=== PATIENT | female | born 1960 | race Caucasian/White ===

== ENCOUNTER 2018-03-17 08:12 | Outpatient (CLI) | payer OTHER | END 2018-03-17 08:13 | disposition home or self-care (01) | LOC: BICMAMMO 08:12 | PROVIDERS: ATTEND Obstetrics & Gynecology | DX: Z12.31 Encounter for screening mammogram for malignant neoplasm of breast (principal) | CPT/HCPCS: 77063; 77067 ==

== ENCOUNTER 2019-03-08 07:03 | Inpatient (IN) | payer OTHER ==
[2019-03-08] MEDS ORDERED: Fentanyl 100 MCG/2 ML VIAL ONE ×2 (07:15→10:46)
[2019-03-08] MEDS ORDERED: Ondansetron PF 4 MG/2 ML Vial ONE (07:20)
--- NOTE | 2019-03-08 07:45 | RAD ---
Radiograph left leg tibia-fibula 2 views: 03/08/2019 7:05 AM HISTORY: 58-year-old female with osteoporosis presents with traumatic pain after fall. COMPARISON: None FINDINGS: Comminuted fracture of tibia beginning at junction between distal and middle thirds of the diaphysis, extending to the tibial plafond and medial malleolus, with displacement. The fracture component at the junction between the proximal and middle thirds of the diaphysis includes spiral component, with 1/5 shaft width anterior displacement but no significant transverse displacement, of the main distal fragment. The more distal comminuted fracture fragments are significantly more displaced and a ngulated. There is spiral fracture of distal fibular metadiaphysis significant displacement. No fracture of the proximal tibia and fibula. Lateral subluxation of the talus relative to the tibial pl afond with varus angulation. Varus angulations of the medial malleolus and lateral malleolus fractures. IMPRESSION: Acute, traumatic, comminuted, displaced fractures of the distal tibia and distal fibula.
[2019-03-08] MEDS ORDERED: Morphine 4 MG/ML VIAL ONE ×2 (07:50→09:13)
--- NOTE | 2019-03-08 07:59 | RAD ---
Radiograph left ankle 3 views: DATE: 03/08/2019 Time: 7:03 AM HISTORY: 58-year-old female with osteoporosis presents with traumatic pain after fall. COMPARISON: None FINDINGS: Comminuted fracture of tibia beginning at junction between distal and middle thirds of the diaphysis, extending to the tibial plafond and medial malleolus, with displacement. The fracture component at the junction between the proximal and middle thirds of the diaphysis includes spiral component, with 1/5 shaft width anterior displacement but no significant transverse displacement, of the main distal fragment. The more distal comminuted fracture fragments are significantly more displaced and a ngulated. There is spiral fracture of distal fibular metadiaphysis significant displacement. No fracture of the proximal tibia and fibula. Lateral subluxation of the talus relative to the tibial pl afond with varus angulation. Varus angulations of the medial malleolus and lateral malleolus fractures. IMPRESSION: Acute, traumatic, comminuted, displaced fractures of the distal tibia and distal fibula, with subluxa tion of the tibiotalar joint.
[2019-03-08 08:07] LABS: #Basophils 0.1 thou/uL (0.0-0.2); #Eosinphils 0.1 thou/uL (0.0-0.7); #Lymphocytes 1.4 thou/uL (1.20-3.40); #Monocytes 0.3 thou/uL (0.11-0.59); #Neutrophils 6.8 thou/uL (1.40-6.50); %Basophils 0.6 % (0.0-1.0); %Eosinophils 1.3 % (0.0-10.0); %Lymphocytes 15.6 % (21.0-51.0); %Monocytes 3.7 % (0.0-10.0); %Neutrophils 78.7 % (42.0-75.0); Hemoglobin 13.9 g/dL (12.0-16.0); Mean Corpuscular HGB CONC 31.3 g/dL (32.0-36.0); Mean Corpuscular Hemoglobin 30.6 pg (27.0-31.0); Mean Corpuscular Volume 97.9 fL (78.0-98.0); Mean Platelet Volume 9.2 fL (7.4-10.4); Platelet Count 163 thou/uL (130-400); RBC Distribution Width 11.3 % (11.5-14.5); Red Blood Cell (RBC) Count 4.55 mill/uL (4.20-5.40); White Blood Cell (WBC) Count 8.6 thou/uL (4.8-10.8)
--- NOTE | 2019-03-08 08:08 | RAD ---
Radiograph left ankle 2 views: DATE: 03/08/2019 Time: 7:37 AM HISTORY: 58-year-old female with acute, traumatic distal tibial and distal fibular fractures, status post redu ction. COMPARISON: 03/08/2019 7:03 AM FINDINGS: The leg and ankle are now in a splint. The subluxation of the tibiotalar joint has been reduced. The angulations of the medial and lateral malleoli fractures have improved. The angulation of the distal tibial diaphyseal fracture component has slightly worsened, now with new anterior slight angul ation of the fracture apex and new quarter shaft width lateral displacement of distal fragment. There is also new anterior angulation of the fracture apex of the distal fibular metadiaphyseal fract ure, but the valgus alveolar aeration has almost completely resolved. IMPRESSION: Overall interval improvement in alignment of the acute, traumatic, displaced, comminuted fracture-sub luxation of distal tibia and distal fibula.
[2019-03-08 08:12] LABS: INR-International Normal Ratio 1.1; PTT 26.7 SEC (22.9-36.1); Prothrombin Time 14.1 SEC (12.0-14.7)
--- NOTE | 2019-03-08 08:13 | RAD ---
LEFT FOOT 2 VIEWS: Date: 03/08/19 HISTORY: Trauma. COMPARISON: Tibia and fibula radiograph same date. FINDINGS: Mild improved alignment distal fibular and tibial fractures with interarticular components. Moderate size plantar calcaneal spur. Evaluation of the foot is limited. IMPRESSION: Mild improved alignment distal fibula and tibial fractures. POS: CET
--- NOTE | 2019-03-08 08:15 | RAD ---
CHEST 1 VIEW: Date: 03/08/19 HISTORY: Preop. COMPARISON: None. FINDINGS: Heart size upper limits of normal. No pneumothorax. Mild pulmonary venous congestion. 3 lead AICD/pacer is in place. No acute osseous abnormality. IMPRESSION: Mild cardiomegaly and pulmonary venous congestion. POS: CET
[2019-03-08] MEDS ORDERED: CEFAZOLIN 2 GM in Sodium Chloride 0.9% 100 ML IVPB SCH ×2 (08:30→14:00)
[2019-03-08 08:31] LABS: ALT (SGPT) 11 U/L (8-55); AST (SGOT) 17 U/L (5-34); Albumin 3.6 g/dL (3.5-5.0); Alkaline Phosphatase 63 U/L (40-150); Anion Gap 11 mmol/L (10-20); BUN (Urea Nitrogen) 10 mg/dL (9.8-20.1); Bilirubin, Total 0.5 mg/dL (0.2-1.2); Calc. Creatinine Clearance 0 mL/min (70-130); Calcium 9.2 mg/dL (7.8-10.44); Carbon Dioxide 21 mmol/L (22-29); Chloride 109 mmol/L (98-107); Estimated GFR-MDRD 78; Globulin 2.7 g/dL (2.4-3.5); Glucose 101 mg/dL (70-105); Potassium 3.9 mmol/L (3.5-5.1); Protein, Total 6.3 g/dL (6.0-8.3); Sodium 137 mmol/L (136-145)
--- NOTE | 2019-03-08 08:40 | CON ---
DATE OF CONSULTATION: This is Ralf Zee PA-C dictating a report for Eitan Bucio MD. We were asked by Trauma and Emergency Room to see the patient. The patient got up early this morning around 3:00, had a Coke Zero and a half a snickerdoodle when she arrived at work at [employer]. 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 This is not open. Initial x-rays done. Medications given by the ER. Ankle realigned and splinted, in good alignment now. The patient has no loss of sensation. She has good motor function to that left lower extremity. She denies any other injury. She did not hit her head. Her health, she states is fair. She has a bad heart and significant osteoporosis. ALLERGIES: NO KNOWN DRUG ALLERGIES. MEDICATIONS: Intravia and carvedilol. PAST SURGICAL HISTORY: Last surgery was defibrillator placement for weak heart. PAST MEDICAL HISTORY: Cardiac and significant osteoporosis. SOCIAL HISTORY: . is at bedside. 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 No alcohol products, but does smoke about a pack a day. No drugs products. REVIEW OF SYSTEMS: Cardiac and osteoporosis, otherwise rest of review of systems is negative. Her only real complaint is that left ankle pain currently. PHYSICAL EXAMINATION: GENERAL: Well-nourished, well-developed female, pleasant, currently in no acute distress. Speech clear. Answers question appropriately. Alert and oriented x3. is at bedside. HEENT: Normal exam. Face symmetric. Tongue midline. NECK: Supple. Range of motion full. Trachea midline. EXTREMITIES: Upper extremities; equal size, shape, symmetry, normal bulk and tone. Good motor function bilaterally. Pulses and sensations equal. Lower extremities; also equal size, shape, symmetry, normal bulk and tone, with the exception of the left lower extremity, which is currently splinted. She has good cap refill and movement, sensations are equal. DIAGNOSTIC DATA: X-rays show a substantial fibula fracture and a tibia fracture on the left. Post alignment films look great and leg is splinted. Labs are pending as is EKG and chest x-ray. PLAN: I spoke with the patient and . She will need to have an ORIF of that left ankle, tib-fib with plating on both bones. The procedure has been explained to both of them as has the risks and benefits, and they are both amenable to go forth with surgery and she has been n.p.o. since about 4:30 this morning. Her plan is to take her to OR around 11:30. We will get her consented, get the OR setup. Again, she has been splinted by the ER and the alignment looks fine. We are just waiting for Trauma to clear the patient with her cardiac history. Once it is done, we will get her up to the OR. Job ID: [id number]
[2019-03-08] MEDS ORDERED: Ondansetron PF 4 MG/2 ML Vial IVP PRN (09:10)
[2019-03-08] MEDS ORDERED: Dextrose 5% in Water 1,000 ML IV PRN (09:10)
[2019-03-08] MEDS ORDERED: Dextrose 50% Abboject 50 ML SYRINGE SLOW IVP PRN (09:10)
[2019-03-08] MEDS ORDERED: Promethazine HCl 25 MG/ML VIAL IM PRN ×2 (09:10→13:51)
[2019-03-08] MEDS ORDERED: hydrALAZINE 20 MG/ML VIAL SLOW IVP PRN (09:10)
[2019-03-08] MEDS ORDERED: D5 1/2 NS w/20 mEq KCL 1,000 ML ONE (09:12)
[2019-03-08] MEDS ORDERED: traMADol HCl 50 MG TAB PO PRN ×2 (09:20→16:49)
[2019-03-08] MEDS ORDERED: Cyclobenzaprine 10 MG TAB PO PRN (09:20)
[2019-03-08] MEDS ORDERED: Morphine 2 MG/ML SYRINGE SLOW IVP PRN (09:33)
[2019-03-08] MEDS ORDERED: Midazolam HCl 2 mg/2 ml Vial ONE (10:46)
[2019-03-08] MEDS ORDERED: Dexamethasone 4 mg/ml Vial ONE (11:15)
--- NOTE | 2019-03-08 11:28 | HP ---
TRAUMA SURGEON: Dr. Paul. CONSULTING PHYSICIAN: Dr. Pleitez of Cardiology. HISTORY OF PRESENT ILLNESS: The patient is a 58-year-old female, who presented to the emergency department via EMS after a mechanical fall from standing with some left lower extremity pain and deformity. En route, the patient did receive fentanyl and ketamine, which she reported caused her to have hallucinations. Upon arrival to the emergency department, it was noted that she had a left distal tib-fib fracture. Orthopedic Surgery was consulted, who recommended operative management. Trauma Surgery evaluated the patient and discovered that the patient does have an AICD for heart failure. She has previously seen Dr. Rushing and had an echo within the last year, but she does not know the results of her echo. REVIEW OF SYSTEMS: All additional 10-point review of systems negative except as indicated above. PAST MEDICAL HISTORY: Heart failure with AICD placement, and osteoarthritis. PAST SURGICAL HISTORY: Hysterectomy. SOCIAL HISTORY: The patient lives at home with her and works a part- time job. MEDICATIONS: 1. Entresto. 2. Carvedilol. ALLERGIES: NO KNOWN DRUG ALLERGIES. PHYSICAL EXAMINATION: PRIMARY SURVEY: Airway intact. Adequate breath sounds bilaterally. 2+ pulses in the bilateral radials, femorals, and DPs. GCS 15. Gross motor and sensation are intact. No lacerations bruising or external bleeding. SECONDARY SURVEY: HEAD: Normocephalic, atraumatic. No gross palpable skull deformity or tenderness. EYES: Pupils 3 to 2, equal, round, reactive to light bilaterally. ENT: No hemotympanum. No epistaxis. No septal hematoma. Midface stable to manipulation. No blood in the oropharynx. The dentition is intact. No anterior neck injury/crepitus/tenderness. C-SPINE: No step-offs or deformities. Nontender. C-collar not in place. CHEST: Nontender. No crepitus. No abrasions or ecchymosis. Equal chest movement. ABDOMEN: Soft, nontender, nondistended. PELVIS: Stable to palpation, nontender. No abrasions or ecchymosis. RECTAL: Deferred. GENITOURINARY: Deferred. EXTREMITIES: Left lower extremity with splint in place. No signs of other external trauma. 2+ pulses in the bilateral radials, femorals, and DPs. Gross motor and sensation are intact. BACK/SPINE: No step-offs, deformities, or tenderness to palpation of the thoracic or lumbar spine. No abrasions or ecchymosis noted. NEUROLOGIC: 5/5 strength in bilateral felt hat flanging operator and plantar, dorsiflexion on the right lower extremity. Wiggles left toes. Gross normal sensation x4 extremities. LABORATORY FINDINGS: White count 8.6, hemoglobin 13.9, hematocrit 44.5, and platelets 163. INR 1.1. Sodium 137, potassium 3.9, chloride 109, carbon dioxide 21, BUN 10, and creatinine is 0.76. DIAGNOSTIC FINDINGS: X-ray of the left ankle demonstrates acute traumatic comminuted displaced fracture of the distal tibia and distal fibula with subluxation of the tibiotalar joint. X-ray of the left tib-fib demonstrates acute traumatic comminuted displaced fracture of the distal tibia and fibula. X-ray of the left foot demonstrates mild improved alignment, distal fibular and tibial fracture. Chest x-ray demonstrates mild cardiomegaly and pulmonary venous congestion. ASSESSMENT: 1. Status post mechanical fall from standing. 2. Left distal tib-fib fracture with ankle dislocation. 3. History of heart failure with AICD placement and history of osteoarthritis. 4. Acute traumatic pain. PLAN: The patient will be admitted to the surgical floor under the trauma surgery team. She is planning to go to the OR today with Dr. Blanchard of Orthopedic Surgery. Dr. Rushing is her button tufter. We did try to speak with Dr. Rushing about the patient; however, Dr. Pleitez is on-call and has agreed to see and evaluate the patient for preop clearance for the OR. We have consulted him officially and will wait for his recommendations. In the meantime, she is okay to go to the floor. She is n.p.o. She has oral and IV pain medications both scheduled and as needed. Postoperatively, she will work with Physical and Occupational Therapy, and depending on her progress, she may be able to go home versus acute inpatient rehab. We will re-evaluate her daily. The patient was seen and evaluated by Dr. Paul and myself this morning. Job ID: [id number] [facility]
[2019-03-08] MEDS ORDERED: ceFAZolin Sodium (SDC) 2 GM/100 ML BAG ONE (11:29)
[2019-03-08] MEDS ORDERED: Acetaminophen 1,000 MG in Premix Bag 1 BAG IVPB SCH (12:00)
[2019-03-08] MEDS ORDERED: traMADol HCl 50 MG TAB PO SCH (12:00)
[2019-03-08] MEDS ORDERED: Ondansetron HCl/PF 4 MG/2 ML Vial IVP PRN (13:51)
[2019-03-08] MEDS ORDERED: Promethazine HCl 25 MG/ML VIAL SLOW IVP PRN (13:51)
--- NOTE | 2019-03-08 14:22 | OP ---
DATE OF PROCEDURE: 03/08/2019 OPERATIONS: 1. Open reduction and internal fixation of left distal tibial shaft fracture. 2. Open reduction and internal fixation of left trimalleolar ankle fracture. PREOPERATIVE DIAGNOSES: 1. Left tibial shaft fracture. 2. Left trimalleolar ankle fracture. POSTOPERATIVE DIAGNOSES: 1. Left tibial shaft fracture. 2. Left trimalleolar ankle fracture. COMPLICATIONS: None. ESTIMATED BLOOD LOSS: Minimal. PRECISION THREAD GRINDER OPERATOR: Ralf Zee. IMPLANTS: Synthes distal tibia plate, size 12-hole, medial. Distal fibular locking plate and multiple locking and nonlocking small fragment screws were utilized. INDICATIONS: Ms. Saunders was identified in the preoperative holding area. Her correct extremity was marked. She was carried to the operating room. She was positioned supine. General anesthesia was induced. A multidisciplinary time-out was performed. The left lower extremity was prepped and draped in the sterile fashion. We began the procedure with a lateral incision over the distal fibula. We dissected down through the subcutaneous tissues to the distal fibula itself. We exposed the fracture. There was an oblique fracture. We pulled traction on this and cleared the soft tissues from the fracture site. We irrigated to remove hematoma. We then reduced the fracture with a reduction clamp. We placed a Synthes lateral distal fibular locking plate. Multiple screws were placed distally and proximally. This rigidly fixed the distal fibular fracture and held our length. We took x-ray images confirming this. At this point, we moved to the medial side. We made a small incision over the medial malleolus. We made a small drill hole and then inserted a clamp. We irrigated the medial malleolar fracture site and joint. We then reduced the fracture back into its anatomic position. We held this with a reduction clamp. We then placed a single 3.5-mm screw across the medial malleolar fracture, rigidly fixing this. Next, at this point, we used an intraoperative x-ray to reduce the tibial shaft fracture. We applied a percutaneous clamp on the fracture site. This stabilized fracture. We passed a K-wire across the fracture, holding it as well. Next, we slid a 12-hole Synthes plate across the medial aspect of the tibia up across the mid tibial shaft fracture. We checked intraoperative position. We then placed a distal locking screw followed by proximal nonlocking screw. This reduced the plate to the bone and held our fracture position. We then placed multiple locking screws distally and proximally, finishing our construct. We took final x-ray images. We then thoroughly irrigated with copious lavage. All wounds were irrigated. At this point, we proceeded with wound closure in layers; 0 Vicryl suture, 2-0 Vicryl suture, nylon, and jeanna were utilized. The patient was placed in a well-padded splint at this point. She was then taken to the recovery room in good condition. Job ID: [id number]
[2019-03-08] MEDS: Ibuprofen 600 MG TAB PO SCH ×3 (14:42→22:13)
[2019-03-08] MEDS: Gabapentin 100 MG CAP PO SCH ×2 (15:11→20:05)
--- NOTE | 2019-03-08 15:23 | RAD ---
LEFT LEG TWO VIEWS: HISTORY: ORIF. COMPARISON: Ankle radiograph from the same day. FINDINGS: Satisfactory postoperative appearance of the medial and lateral plate and screw fixation with multipl e interfragmentary screws. IMPRESSION: Satisfactory postoperative appearance. POS: CET
[2019-03-08 15:54] VITALS: BMI 34.3
[2019-03-08] MEDS ORDERED: Acetaminophen/Codeine 30-300mg Tablet PO PRN (16:04)
[2019-03-08] MEDS: Acetaminophen 500 MG TAB PO SCH ×2 (17:04→23:31)
[2019-03-08] MEDS: traMADol HCl 50 MG TAB PO SCH ×2 (17:14→22:14)
[2019-03-08] MEDS ORDERED: Acetaminophen/Codeine 30-300mg Tablet PO SCH (18:00)
[2019-03-08] MEDS ORDERED: Acetaminophen 325 MG TAB PO SCH (18:00)
[2019-03-08] MEDS: Senokot S 8.6-50 MG TAB PO SCH (20:05)
[2019-03-08] MEDS: CEFAZOLIN 2 GM in Sodium Chloride 0.9% 100 ML IVPB SCH (20:06)
[2019-03-08] MEDS: Famotidine 20 MG TAB PO SCH (20:06)
[2019-03-08] MEDS: Carvedilol 6.25 MG TAB PO SCH (20:07)
[2019-03-09] MEDS: CEFAZOLIN 2 GM in Sodium Chloride 0.9% 100 ML IVPB SCH (04:07)
[2019-03-09 05:28] LABS: #Lymphocytes 1.1 thou/uL (1.20-3.40); #Monocytes 0.7 thou/uL (0.11-0.59); #Neutrophils 8.2 thou/uL (1.40-6.50); %Basophils 0.1 % (0.0-1.0); %Eosinophils 0.2 % (0.0-10.0); %Lymphocytes 10.7 % (21.0-51.0); %Monocytes 6.9 % (0.0-10.0); %Neutrophils 82.1 % (42.0-75.0); Hemoglobin 11.2 g/dL (12.0-16.0); Mean Corpuscular HGB CONC 32.4 g/dL (32.0-36.0); Mean Corpuscular Hemoglobin 31.8 pg (27.0-31.0); Mean Corpuscular Volume 98.2 fL (78.0-98.0); Mean Platelet Volume 9.5 fL (7.4-10.4); Platelet Count 137 thou/uL (130-400); RBC Distribution Width 11.1 % (11.5-14.5); Red Blood Cell (RBC) Count 3.53 mill/uL (4.20-5.40)
[2019-03-09 05:43] LABS: Anion Gap 10 mmol/L (10-20); BUN (Urea Nitrogen) 11 mg/dL (9.8-20.1); Calc. Creatinine Clearance 114 mL/min (70-130); Calcium 9.1 mg/dL (7.8-10.44); Carbon Dioxide 24 mmol/L (22-29); Chloride 105 mmol/L (98-107); Estimated GFR-MDRD 79; Glucose 128 mg/dL (70-105); Magnesium 1.7 mg/dL (1.6-2.6); Phosphorus 3.3 mg/dL (2.3-4.7); Potassium 3.7 mmol/L (3.5-5.1); Sodium 135 mmol/L (136-145)
[2019-03-09] MEDS: Acetaminophen 500 MG TAB PO SCH ×2 (06:20→11:14)
[2019-03-09] MEDS: traMADol HCl 50 MG TAB PO SCH ×2 (06:22→11:20)
[2019-03-09] MEDS: Ibuprofen 600 MG TAB PO SCH (06:22)
[2019-03-09 07:31] VITALS: TEMP 98.2
[2019-03-09] MEDS ORDERED: Magnesium 2 GM/50 ML 2 GM in Premix Bag 1 BAG IVPB SCH (07:45)
[2019-03-09] MEDS ORDERED: PHOS-NAK 1 PKT PACK PO SCH (07:45)
[2019-03-09] MEDS: Carvedilol 6.25 MG TAB PO SCH (08:17)
[2019-03-09] MEDS: Gabapentin 100 MG CAP PO SCH (08:32)
[2019-03-09] MEDS: Famotidine 20 MG TAB PO SCH (08:33)
[2019-03-09] MEDS: Senokot S 8.6-50 MG TAB PO SCH (08:33)
[2019-03-09] MEDS ORDERED: Polyethylene Glycol 3350 17 GM Packet PO SCH (09:00)
[2019-03-09] MEDS ORDERED: Enoxaparin Sodium 40 MG/0.4 ML SYRINGE SC SCH (09:00)
[2019-03-09 09:58] VITALS: BP 93/52
--- NOTE | 2019-03-09 10:14 | PRG ---
DATE OF SERVICE: 03/09/2019 SUBJECTIVE: Ms. Saunders underwent surgery repair of her fractured lower extremity yesterday. The patient is breathing fine. No chest pain or pressure. She tolerated the surgery well. The patient had a left tibial shaft fracture and left trimalleolar ankle fracture. OBJECTIVE: GENERAL: The patient is doing well now. VITAL SIGNS: Blood pressure 100/60 and pulse 60. LUNGS: Clear. Expiratory wheezing. CARDIAC: Normal S1 and normal S2. ABDOMEN: Soft and nontender. ASSESSMENT: 1. History of cardiomyopathy. Chest x-ray did not show evidence of heart failure. 2. Status post ankle fracture repair. PLAN: 1. She is to follow up with Dr. Rushing as an outpatient. Most recent ejection fraction is 45%. 2. I strongly encouraged to quit smoking. She says not unusual to wheeze. I stressed the importance of not smoking. Job ID: [id number]
--- NOTE | 2019-03-10 09:35 | DIS ---
DATE OF ADMISSION: 03/08/2019 DATE OF DISCHARGE: 03/09/2019 ADMISSION DIAGNOSES: 1. Status post fall. 2. Left trimalleolar ankle fracture, postop open reduction and internal fixation of left trimalleolar ankle fracture, day #1. 3. History of cardiomyopathy. DISCHARGE DIAGNOSES: 1. Status post fall. 2. Left ankle fracture, postop open reduction and internal fixation of left ankle fracture. 3. History of cardiomyopathy stable HOSPITAL COURSE: This is a 58-year-old female patient, who comes in for evaluation of left ankle pain after a fall. The patient was diagnosed with left ankle fracture and underwent surgery on the same day, ORIF. Her heart disease is stable.Minilab Operator is ok for her to go home and follow up with Dr Rushing. Pain is well controlled, tolerated regular diet. The patient is able to mobilize well and tolerate with regular diet. DISCHARGE DISPOSITION: Home. DISCHARGE CONDITION: Satisfactory. PHYSICAL EXAMINATION: GENERAL: The patient is alert, oriented x3. VITAL SIGNS: Temperature 98, respiratory rate 14, heart rate 61, O2 saturation 91% on room air, blood pressure 93/52. LUNGS: Clear bilaterally. CARDIAC: Regular rate and rhythm. ABDOMEN: Soft, nondistended. No rebound. EXTREMITIES: Neurovascularly intact x4. DISCHARGE INSTRUCTIONS: The patient is to follow up with Dr. Rushing in 2 weeks. The patient is to continue to work with outpatient PT, OT. The patient is to take pain medication as directed. The patient is instructed to stop smoking. DISCHARGE MEDICATIONS: 1. Aspirin b.i.d for DVT prophylaxis. 2. [place] p.r.n. for breakthrough pain. Job ID: [id number] [facility]
== END 2019-03-09 11:34 | disposition home or self-care (01) | DRG 493 ==
LOC: ERS 07:03 → SDC 10:09 → SURG A 14:37
PROVIDERS: ADMIT Specialist; ATTEND Specialist
PROC: 0QSH04Z Reposition Left Tibia with Internal Fixation Device, Open Approach (ICD-10-PCS; principal; 2019-03-08)
DX: S82.852A Displaced trimalleolar fracture of left lower leg, initial encounter for closed fracture (principal); I42.9 Cardiomyopathy, unspecified; S93.05XA Dislocation of left ankle joint, initial encounter; S82.832A Other fracture of upper and lower end of left fibula, initial encounter for closed fracture; W01.10XA Fall on same level from slipping, tripping and stumbling with subsequent striking against unspecified object, initial encounter; M81.0 Age-related osteoporosis without current pathological fracture; I50.9 Heart failure, unspecified; F17.210 Nicotine dependence, cigarettes, uncomplicated; M19.90 Unspecified osteoarthritis, unspecified site; Z95.810 Presence of automatic (implantable) cardiac defibrillator; Y92.511 Restaurant or cafe as the place of occurrence of the external cause; Z90.710 Acquired absence of both cervix and uterus; Z88.8 Allergy status to other drugs, medicaments and biological substances
CPT/HCPCS: 27840; 36415; 71045; 76000; 80048; 80053; 83735; 84100; 85025; 85610; 85730; 93005; 96361; 96374; 96375; 96376; C1713; G0390; J0131; J0690; J1100; J1650; J2250; J2270; J2405; J3010; J3475; J3490

== ENCOUNTER 2019-07-11 17:31 | Inpatient (IN) | payer OTHER ==
--- NOTE | 2019-07-11 18:29 | RAD ---
XR Femur Lt 2 View STANDARD History: Trauma. Fall Comparison: Pelvis radiograph 2016 Findings: Left proximal femur is intact poorly evaluated distal femur although there does appear to b e a lateral femoral condylar fracture of the superior articular surface. The crosstable lateral view has a linear lucency through the femoral neck although not definitively a fracture of there is n o cortical step-off. Impression: 1. Severely limited examination. 2. Possible left lateral femoral condylar fracture supra-articular surface. 3. Linear lucency of the left femoral neck only seen on the crosstable lateral view which is limited due to projection and overlying soft tissue. If acutely unable to bear weight, CT or MRI is recommended.
--- NOTE | 2019-07-11 18:31 | RAD ---
XR Knee Lt 2 View History: Fall. Trauma Comparison: None. Findings: Possible fracture left lateral femoral condyle the limited due to nontreated views and paul re osteopenia as well as photon starvation. The lateral tibial plateau is not well interrogated. Impression: Severely limited exam. Possible lateral femoral condyle supra-articular fracture. Lateral tibial plateau is severely osteopenic and evaluation for fracture cannot be performed. CT recommended if clinically warranted.
--- NOTE | 2019-07-11 19:10 | RAD ---
XR Chest 1 View Portable History: Preop evaluation Comparison: Radiograph February 2019 Findings: AICD/pacer is similar. Lungs are clear. No pneumothorax. No effusion. Impression: No acute intrathoracic abnormality.
[2019-07-11 19:42] LABS: #Basophils 0.1 thou/uL (0.0-0.2); #Eosinphils 0.1 thou/uL (0.0-0.7); #Lymphocytes 1.3 thou/uL (1.20-3.40); #Monocytes 0.7 thou/uL (0.11-0.59); #Neutrophils 9.3 thou/uL (1.40-6.50); %Basophils 0.6 % (0.0-1.0); %Eosinophils 0.9 % (0.0-10.0); %Lymphocytes 11.4 % (21.0-51.0); Hemoglobin 14.4 g/dL (12.0-16.0); Mean Corpuscular HGB CONC 33.6 g/dL (32.0-36.0); Mean Corpuscular Hemoglobin 32.2 pg (27.0-31.0); Mean Corpuscular Volume 95.9 fL (78.0-98.0); Mean Platelet Volume 8.9 fL (7.4-10.4); Platelet Count 194 thou/uL (130-400); RBC Distribution Width 11.4 % (11.5-14.5); Red Blood Cell (RBC) Count 4.46 mill/uL (4.20-5.40); White Blood Cell (WBC) Count 11.5 thou/uL (4.8-10.8)
[2019-07-11] MEDS ORDERED: Ondansetron PF 4 MG/2 ML Vial ONE (19:52)
[2019-07-11] MEDS ORDERED: Ketorolac Tromethamine 30 MG/ML VIAL ONE (19:52)
[2019-07-11 20:01] LABS: Anion Gap 11 mmol/L (10-20); BUN (Urea Nitrogen) 12 mg/dL (9.8-20.1); Calc. Creatinine Clearance 0 mL/min (70-130); Calcium 9.4 mg/dL (7.8-10.44); Carbon Dioxide 26 mmol/L (23-31); Chloride 105 mmol/L (98-107); Estimated GFR-MDRD 64; Glucose 103 mg/dL (80-115); Magnesium 1.9 mg/dL (1.6-2.6); Phosphorus 3.1 mg/dL (2.3-4.7); Potassium 3.9 mmol/L (3.5-5.1); Sodium 138 mmol/L (136-145)
--- NOTE | 2019-07-11 20:14 | CT ---
CT Lower Ext Lt WO Con History: Pain Comparison: Radiograph same day Findings: Sagittally oriented fracture through the left femoral condyle extending to the intra-articu lar surface and posteriorly to the intercondylar notch. Bones are demineralized. The fracture extends above the joint line 3.5 cm. Tibial plateaus are intact. Fibular head and neck are intact. Large joint effusion. The muscles are atrophied. Large volume hemorrhage within the popliteal cyst. Impression: 1. Sagittal oblique fracture lateral femoral condyle extending to the anterior articular surface. Fra cture extends above the jointline 3.5 cm. 2. Muscle atrophy with high-grade osseous demineralization. 3. Incidental note is made of an old sagittally oriented right patellar fracture and posterior latera l right tibial plateau fracture.
--- NOTE | 2019-07-11 20:47 | HP ---
REQUESTING PHYSICIAN: Ronn Vasquez MD ADDITIONAL ATTENDING SURGEON: Stephan Priest MD CONSULTATIONS: Orthopedics, Eliseo Pérez MD HISTORY OF PRESENT ILLNESS: The patient is a 59-year-old woman, who was brought to the Emergency Department after she had a fall this morning around 11 a.m. She reports tripping and falling and landing on her left knee. The patient was wearing a walking boot from a previous injury in February. She is also ambulating with her cane. States that she hooked her boot on something and fell. She was able to get back to a recliner, where she remained for most of the day. When it was time for her to use the restroom, she was unable to ambulate. Her family called EMS. She was brought to the Emergency Department, underwent evaluation and examination and was noted to have a minimally displaced distal femur fracture, at which time, we were asked to evaluate the patient for admission and obtain Orthopedic consultation. The patient denied any loss of consciousness or syncopal episodes. ALLERGIES: FENTANYL. THE PATIENT STATES THAT MADE HER HALLUCINATE. CURRENT MEDICATIONS: 1. Carvedilol. 2. Entresto. PAST MEDICAL HISTORY: Coronary artery disease, heart failure with AICD placement, and osteoarthritis. PAST SURGICAL HISTORY: Hysterectomy and open reduction and internal fixation of left ankle fracture. SOCIAL HISTORY: The patient lives at home with her spouse. She smokes approximately one pack of cigarettes per day. Denies alcohol use or drug use. REVIEW OF SYSTEMS: A 10-point review of systems is negative as otherwise stated. PHYSICAL EXAMINATION: VITAL SIGNS: Blood pressure 121/70, heart rate 83, respirations 18, oxygen saturation 93% on room air, and temperature is 98.6. GENERAL: The patient is resting comfortably in bed. She has been medicated in the Emergency Department. She is awake, alert, and oriented x3. Beryl Coma Scale is 15. HEENT: Head is normocephalic and atraumatic. Eyes, extraocular motion intact. PERRLA bilaterally. Ears are atraumatic without discharge. Nose atraumatic without discharge. Oropharynx is clear. NECK: Nontender. Trachea is midline. No JVD. CHEST: Clear to auscultation with good inspiratory and expiratory effort. HEART: Regular rate and rhythm. ABDOMEN: Soft, flat, and nontender with active bowel sounds. PELVIS: Stable. EXTREMITIES: Neurovascularly intact x4. Left lower extremity has tenderness to palpation globally to the left knee area with a moderate effusion. BACK: By report is atraumatic and nontender. LABORATORY FINDINGS: White blood cell count 11.5, hemoglobin 14.4, hematocrit 42.8, and platelets 194. Sodium 138, potassium 3.9, chloride 105, CO2 of 26, BUN 12, creatinine 0.89, glucose 103, phosphorus 3.1, and magnesium 1.9. RADIOGRAPHIC REPORTS: AP chest x-ray shows no acute intrathoracic abnormality. Views of the left knee shows a possible lateral femoral condyle supracondylar fracture. The tibial plateau severely osteopenic and evaluation for fracture cannot be performed, CT is recommended. Views of the left femur again shows a possible left lateral femoral condyle supra-articular surface fracture. CT of the left knee shows a sagittal oblique fracture lateral femoral condyle extending to the anterior articular surface. ASSESSMENT: 1. Status post ground level fall with delayed presentation of approximately 8 hours. 2. Left distal femur fracture. 3. History of coronary artery disease, heart failure with automatic implantable cardioverter-defibrillator placement. PLAN: Plan will be to admit the patient to the surgical floor. She will be made n.p.o. after midnight. She will have pain control, pulmonary toilet, gastritis , and mechanical VTE prophylaxis. Postoperatively, she will begin physical and occupational therapy. We will discuss placement at that time. The evaluation and examination, laboratory and radiographic findings will be discussed with Dr. Priest after this dictation. Dr. Pérez has been notified of these findings, he informed me that Dr Bucio will preform the surgery. Job ID: [id number] [facility]
[2019-07-11] MEDS ORDERED: Morphine 4 MG/ML VIAL SLOW IVP PRN (22:21)
[2019-07-11] MEDS ORDERED: Ondansetron ODT 4 MG TAB PO PRN (22:21)
[2019-07-11] MEDS ORDERED: Dextrose 5% in Water 1,000 ML IV PRN (22:21)
[2019-07-11] MEDS ORDERED: Ondansetron PF 4 MG/2 ML Vial IVP PRN (22:21)
[2019-07-11] MEDS ORDERED: traMADol HCl 50 MG TAB PO PRN (22:21)
[2019-07-11] MEDS ORDERED: hydrALAZINE 20 MG/ML VIAL SLOW IVP PRN (22:21)
[2019-07-11] MEDS ORDERED: Dextrose 50% Abboject 50 ML SYRINGE SLOW IVP PRN (22:21)
[2019-07-11] MEDS ORDERED: Famotidine 20 MG TAB PO SCH (22:45)
[2019-07-11] MEDS: Cyclobenzaprine 10 MG TAB PO PRN (22:59)
[2019-07-11] MEDS: traMADol HCl 50 MG TAB PO PRN (23:01)
[2019-07-11 23:18] VITALS: BMI 35.8
[2019-07-11] MEDS ORDERED: Sodium Chloride 0.9% 1,000 ML IV SCH (23:55)
[2019-07-12] MEDS: Acetaminophen 1,000 MG in Premix Bag 1 BAG IVPB SCH ×3 (00:05→12:18)
[2019-07-12] MEDS: Morphine 2 MG/ML SYRINGE SLOW IVP PRN ×2 (00:06→09:15)
[2019-07-12 06:21] LABS: #Eosinphils 0.1 thou/uL (0.0-0.7); #Lymphocytes 1.9 thou/uL (1.20-3.40); #Neutrophils 6.5 thou/uL (1.40-6.50); %Basophils 0.3 % (0.0-1.0); %Eosinophils 1.3 % (0.0-10.0); %Lymphocytes 20.1 % (21.0-51.0); %Monocytes 10.6 % (0.0-10.0); %Neutrophils 67.7 % (42.0-75.0); Hemoglobin 12.5 g/dL (12.0-16.0); Mean Corpuscular HGB CONC 33.2 g/dL (32.0-36.0); Mean Corpuscular Hemoglobin 31.8 pg (27.0-31.0); Mean Corpuscular Volume 96.1 fL (78.0-98.0); Mean Platelet Volume 8.9 fL (7.4-10.4); Platelet Count 162 thou/uL (130-400); RBC Distribution Width 11.4 % (11.5-14.5); Red Blood Cell (RBC) Count 3.91 mill/uL (4.20-5.40); White Blood Cell (WBC) Count 9.6 thou/uL (4.8-10.8)
[2019-07-12] MEDS: traMADol HCl 50 MG TAB PO PRN (06:25)
[2019-07-12 06:27] LABS: INR-International Normal Ratio 1.1
[2019-07-12] MEDS: Cyclobenzaprine 10 MG TAB PO PRN ×2 (06:36→23:37)
[2019-07-12 06:39] LABS: Anion Gap 8 mmol/L (10-20); BUN (Urea Nitrogen) 12 mg/dL (9.8-20.1); Calc. Creatinine Clearance 113 mL/min (70-130); Calcium 8.8 mg/dL (7.8-10.44); Carbon Dioxide 28 mmol/L (23-31); Chloride 104 mmol/L (98-107); Estimated GFR-MDRD 75; Glucose 104 mg/dL (80-115); Potassium 3.9 mmol/L (3.5-5.1); Sodium 136 mmol/L (136-145)
[2019-07-12] MEDS ORDERED: Sodium Chloride 0.9% 1,000 ML IV SCH (07:07)
[2019-07-12] MEDS ORDERED: CEFAZOLIN 2 GM in Premix Bag 1 BAG IVPB SCH (07:15)
[2019-07-12 07:40] LABS: Phosphorus 4.1 mg/dL (2.3-4.7)
[2019-07-12] MEDS ORDERED: Non-Formulary Item 1 EACH (Carvedilol [Carvedilol] 12.5 MG) PO SCH (09:00)
[2019-07-12] MEDS: Carvedilol 6.25 MG TAB PO SCH ×2 (09:02→20:00)
[2019-07-12] MEDS: Famotidine 20 MG TAB PO SCH ×2 (09:03→20:02)
[2019-07-12] MEDS ORDERED: Ropivacaine 0.5% HCl/PF (150 MG/30 ML VIAL) ONE (10:04)
[2019-07-12] MEDS ORDERED: ePHEDrine/0.9% NaCl/PF SYRINGE 50 mg/10 ml ONE (10:04)
[2019-07-12] MEDS ORDERED: Ondansetron PF 4 MG/2 ML Vial ONE (10:04)
[2019-07-12] MEDS ORDERED: PROPOFOL 200 MG/20 ML VIAL ONE (10:04)
[2019-07-12] MEDS ORDERED: Ketorolac Tromethamine 30 MG/ML VIAL ONE (10:04)
[2019-07-12] MEDS ORDERED: Dexamethasone 20 MG/5 ML VIAL ONE (10:04)
[2019-07-12] MEDS ORDERED: Ropivacaine 0.2% HCl/PF (40 MG/20 ML VIAL) ONE (10:04)
[2019-07-12] MEDS ORDERED: PHENYLEPHRINE-NS 100 MCG/ML 10 ML SYRINGE ONE (10:04)
[2019-07-12] MEDS ORDERED: Lidocaine 1% PF 5 ML VIAL ONE (10:04)
[2019-07-12] MEDS ORDERED: Glycopyrrolate 0.2 MG/ML 5 ML SYRINGE ONE (10:04)
[2019-07-12] MEDS ORDERED: Rocuronium Bromide 10 MG/ML (10ML VIAL) ONE (10:04)
--- NOTE | 2019-07-12 10:43 | PRG ---
DATE OF SERVICE: 07/12/2019 SUBJECTIVE: Ms. Saunders is a 59-year-old woman, who is post injury day #1, status post ground level fall. She sustained left distal femur fracture, which is pending operative intervention. This morning, she reports 7/10 left leg pain. She denies any chest pain, dyspnea, or syncope. OBJECTIVE: VITAL SIGNS: Include blood pressure 98/62, pulse is 69, respiratory rate is 16, temperature 98.2 degrees Fahrenheit, and oxygen saturation is 96% on 2 L by nasal cannula oxygen. HEART: Reveals regular rate and rhythm. LUNGS: Clear to auscultation bilaterally. Breathing, regular and nonlabored. ABDOMEN: Soft, nontender, and nondistended. EXTREMITIES: Reveal 2+ radial and pedal pulses bilaterally. LABORATORY FINDINGS: Today include CBC with 9600 white blood cells, hemoglobin and hematocrit stable at 12.5 and 37.6 respectively. Platelet count 162,000. Metabolic profile; sodium 136, potassium 3.9, chloride is 104, bicarb is 28, BUN 12, creatinine 0.78, glucose 104, magnesium 2.0, and phosphorus is 4.1. IMPRESSION: 1. Post injury day #1, status post ground level fall. 2. Left distal femur fracture. PLAN: Optimize pain control. The patient is certainly hemodynamically stable to proceed with Orthopedic Surgery for repair of the femur fracture. Job ID: [id number]
[2019-07-12] MEDS ORDERED: Fentanyl 100 MCG/2 ML VIAL ONE (11:58)
[2019-07-12] MEDS ORDERED: Midazolam HCl 2 mg/2 ml Vial ONE (11:58)
[2019-07-12] MEDS ORDERED: Zolpidem Tartrate 5 MG TAB PO PRN (12:43)
[2019-07-12] MEDS ORDERED: Ketorolac Tromethamine 30 MG/ML VIAL IVP PRN (12:43)
[2019-07-12] MEDS ORDERED: HYDROcodone/Acetaminophen 5/325 mg Tablet PO PRN ×2 (12:43)
[2019-07-12] MEDS ORDERED: traMADol HCl 50 MG TAB PO PRN (12:43)
[2019-07-12] MEDS ORDERED: Ropivacaine HCl/PF 250 ML in Premix Bag 1 BAG NERVE BLCK SCH (12:43)
[2019-07-12] MEDS ORDERED: Ondansetron PF 4 MG/2 ML Vial IVP PRN (12:43)
[2019-07-12] MEDS ORDERED: Promethazine HCl 25 MG/ML VIAL IM PRN (12:43)
[2019-07-12] MEDS ORDERED: Ibuprofen 600 MG TAB PO PRN (13:00)
[2019-07-12] MEDS ORDERED: Ondansetron HCl/PF 4 MG/2 ML Vial IVP PRN (15:29)
[2019-07-12] MEDS ORDERED: Meperidine HCl/PF 25 MG/ML VIAL SLOW IVP PRN (15:29)
[2019-07-12] MEDS ORDERED: HYDROmorphone 2 MG/ML VIAL SLOW IVP PRN (15:29)
[2019-07-12] MEDS ORDERED: Morphine Sulfate 2 MG/ML SYRINGE SLOW IVP PRN (15:29)
[2019-07-12] MEDS ORDERED: Promethazine HCl 25 MG/ML VIAL SLOW IVP PRN (15:29)
--- NOTE | 2019-07-12 16:15 | OP ---
DATE OF PROCEDURE: 07/12/2019 PROCEDURE PERFORMED: Open reduction and internal fixation of left distal femoral lateral condyle fracture. PREOPERATIVE DIAGNOSIS: Left distal femoral condyle fracture. POSTOPERATIVE DIAGNOSIS: Left distal femoral condyle fracture. COMPLICATIONS: None. ESTIMATED BLOOD LOSS: Minimal. RUG SHAMPOOER: Hans Rivers PA-C IMPLANT: Synthes 6-hole distal femoral plate with multiple locking and nonlocking screws. INDICATIONS: Ms. Saunders is a 59-year-old female, who fell and fractured her left distal femur. She was indicated for open reduction and internal fixation to restore anatomic alignment and promote healing. Risks have been reviewed in detail. She is at risk for further fracture, nonunion and delayed union, nerve or vascular injury, and others. DESCRIPTION OF PROCEDURE: Ms. Saunders was identified in the preoperative holding area. Her correct extremity was marked. She was carried to the operating room. She was positioned supine. General anesthesia was induced. A multidisciplinary time-out was performed. The left lower extremity was prepped and draped in sterile fashion. We began the procedure with making an incision over the lateral aspect of the femur. We dissected down through the subcutaneous tissues to the fascia, which was opened. This allowed us to perform a lateral arthrotomy. We evacuated hematoma from the knee joint. We then encountered the distal femoral fracture. We reduced the fracture back into its anatomic position and held this with a K-wire. We then placed 2 [id number] screws into the femoral condyle. Next, we placed a lateral femoral plate. This was held with K-wire fixation initially and then subsequently, we placed multiple screws distally and proximally. Multiple screws were in the distal aspect of the femoral condyle, which was fractured as well as the stable proximal bone. Again, we took x-ray images confirming placement. There were no complications. We thoroughly irrigated with copious lavage. At this point, we closed with #1 Vicryl suture, 2-0 Vicryl suture, and jeanna for the skin. A sterile dressing was applied. The patient was taken to the recovery room in good condition. Job ID: [id number]
[2019-07-12] MEDS ORDERED: HYDROmorphone 0.5 MG/0.5 ML SYRINGE ONE ×3 (16:16→16:46)
[2019-07-12] MEDS ORDERED: Morphine 10 MG/ML VIAL ONE (16:19)
[2019-07-12] MEDS ORDERED: Bupivacaine 0.25% HCL 30 ML VIAL ONE (16:29)
--- NOTE | 2019-07-12 17:27 | RAD ---
LEFT FEMUR 2 VIEWS: Date: 07/12/19 HISTORY: Intraoperative films. FINDINGS: This is a series of C-arm films which show plate and screw placement along the lateral side of the di stal femoral shaft related to fixation of a lateral femoral condyle fracture. IMPRESSION: Open reduction and internal fixation of lateral femoral condyle fracture. POS: [facility]
[2019-07-12] MEDS: Acetaminophen 500 MG TAB PO SCH ×2 (18:17→23:35)
[2019-07-12] MEDS: CEFAZOLIN 2 GM in Premix Bag 1 BAG IVPB SCH (20:00)
--- NOTE | 2019-07-12 23:41 | PRG ---
DATE OF SERVICE: 07/12/2019 SUBJECTIVE: The patient is hospital day 2, postop day 0, status post ground level fall in which she sustained a left distal femoral condyle fracture. Today, she underwent open reduction and internal fixation of same today. There were no reported issues with that. She is due to begin working with Physical and Occupational Therapy. She is tolerating a diet. Her pain is controlled. OBJECTIVE: VITAL SIGNS: Stable. The patient is afebrile. GENERAL: At the time of my visit, the patient was asleep. She appeared comfortable, in no distress. Nurses do not report any issues. ASSESSMENT: 1. Status post ground level fall. 2. Status post open reduction and internal fixation of left distal femur fracture. PLAN: Plan will be to continue supportive care, physical and occupational therapy, and discuss placement tomorrow. Job ID: [id number] MTDD
[2019-07-13] MEDS: Acetaminophen 500 MG TAB PO SCH (04:10)
[2019-07-13] MEDS: CEFAZOLIN 2 GM in Premix Bag 1 BAG IVPB SCH (04:10)
[2019-07-13 05:15] LABS: #Lymphocytes 0.6 thou/uL (1.20-3.40); #Monocytes 0.5 thou/uL (0.11-0.59); #Neutrophils 8.9 thou/uL (1.40-6.50); %Lymphocytes 6.4 % (21.0-51.0); %Monocytes 5.3 % (0.0-10.0); %Neutrophils 88.3 % (42.0-75.0); Hemoglobin 11.2 g/dL (12.0-16.0); Mean Corpuscular HGB CONC 32.9 g/dL (32.0-36.0); Mean Corpuscular Hemoglobin 31.6 pg (27.0-31.0); Mean Corpuscular Volume 96.2 fL (78.0-98.0); Platelet Count 150 thou/uL (130-400); RBC Distribution Width 11.3 % (11.5-14.5); Red Blood Cell (RBC) Count 3.54 mill/uL (4.20-5.40)
[2019-07-13 05:45] LABS: Anion Gap 9 mmol/L (10-20); BUN (Urea Nitrogen) 8 mg/dL (9.8-20.1); Calc. Creatinine Clearance 118 mL/min (70-130); Calcium 9.1 mg/dL (7.8-10.44); Carbon Dioxide 27 mmol/L (23-31); Chloride 106 mmol/L (98-107); Estimated GFR-MDRD 79; Glucose 141 mg/dL (80-115); Magnesium 1.9 mg/dL (1.6-2.6); Phosphorus 2.8 mg/dL (2.3-4.7); Potassium 4.6 mmol/L (3.5-5.1); Sodium 137 mmol/L (136-145)
[2019-07-13] MEDS: Famotidine 20 MG TAB PO SCH ×2 (08:19→21:00)
[2019-07-13] MEDS: Gabapentin 300 MG CAP PO SCH ×2 (08:20→21:00)
[2019-07-13] MEDS: traMADol HCl 50 MG TAB PO PRN ×2 (08:23→16:02)
[2019-07-13] MEDS: Carvedilol 6.25 MG TAB PO SCH ×2 (08:44→21:00)
[2019-07-13] MEDS: Enoxaparin Sodium 40 MG/0.4 ML SYRINGE SC SCH (08:59)
[2019-07-13] MEDS ORDERED: Aspirin Chewable 81 MG TAB PO SCH (09:00)
[2019-07-13] MEDS: traMADol HCl 50 MG TAB PO SCH ×2 (11:39→18:31)
[2019-07-13] MEDS: Acetaminophen 325 MG TAB PO SCH ×2 (11:46→18:30)
[2019-07-13] MEDS ORDERED: Acetaminophen 500 MG TAB PO SCH (12:00)
[2019-07-13] MEDS: Ibuprofen 600 MG TAB PO SCH ×2 (14:11→21:00)
[2019-07-13] MEDS ORDERED: Hydrocortisone Sod Succ/PF 100 mg/2 ml Vial IVP SCH (15:15)
--- NOTE | 2019-07-13 15:45 | PRG ---
DATE OF SERVICE: 07/13/2019 SUBJECTIVE: Ms. Saunders is a 59-year-old female, who was postop day #1 of ORIF of left distal femur fracture. Postoperatively, the patient reports doing good. Pain is well controlled. working with PT/OT. She tolerated her regular diet. Her vital signs are stable. . OBJECTIVE: GENERAL: The patient is lying down in bed comfortable with no acute respiratory distress. VITAL SIGNS: Temperature 98.4, heart rate 71, respiratory rate 18, O2 saturation 95 on room air, and blood pressure 199/61. LUNGS: Clear bilaterally. HEART: Regular rate and rhythm. ABDOMEN: Soft, nondistended. EXTREMITIES: Postop dressing is clean, dry, intact. Neurovascularly intact x4. NEUROLOGY: No focal neurology deficits. LABORATORY DATA: White count 10,000, hemoglobin 11.2. Chemistry; sodium 137, potassium 4.6, creatinine is 0.75, and cortisone level is 2.2. ASSESSMENT: 1. Status post ground level fall. 2. Left distal femur fracture, status post open reduction and internal fixation of left distal femur fracture, postop day #1. 3. Acute adrenal insufficiency. PLAN: We will continue supportive care. The patient will be working with PT/OT today. We will initiate Lovenox for DVT prophylaxis, initiate hydrocortisone IV for adrenal insufficiency. The patient wish to go home with home health and physical therapy is agreeable with the plan. Anticipate discharge home tomorrow with home health. We will cooperate with pillowcase maker on that matter. The patient was seen and evaluated with Dr. Paul on rounds this morning. Job ID: [id number]
[2019-07-13] MEDS: Cyclobenzaprine 10 MG TAB PO PRN (16:02)
[2019-07-13] MEDS: Hydrocortisone Sod Succ/PF 100 mg/2 ml Vial IVP SCH (18:30)
[2019-07-13] MEDS ORDERED: Enoxaparin Sodium 40 MG/0.4 ML SYRINGE SC SCH (21:00)
--- NOTE | 2019-07-13 23:43 | PRG ---
DATE OF SERVICE: 07/13/2019 SUBJECTIVE: The patient is hospital day #2, postop day #1, status post left distal femur fracture, in which she underwent open reduction and internal fixation yesterday. She tolerated the procedure well. She has been working with physical and occupational therapy and per her request, she would like to be discharged with home health. This will likely be within the next 24 to 48 hours. She states her pain is controlled. She is tolerating a diet. She was noted to be slightly hypotensive today and the Day team started her on hydrocortisone. She had a cortisol level of 2.20. PHYSICAL EXAMINATION: VITAL SIGNS: Stable. The patient is afebrile. GENERAL: The patient is resting comfortably in bed. She was asleep when I entered the room, did awaken with gentle verbal stimuli. She had no complaints. She appeared comfortable. RESPIRATIONS: Nonlabored. EXTREMITIES: Postop dressing is clean, dry, and intact. ASSESSMENT: 1. Status post ground level fall. 2. Status post open reduction and internal fixation of left distal femur fracture. 3. Adrenal insufficiency, treated with hydrocortisone. PLAN: Plan will be to continue supportive care, physical and occupational therapy, and await appropriate discharge timing. Job ID: [id number]
[2019-07-14] MEDS: traMADol HCl 50 MG TAB PO SCH ×3 (00:05→12:55)
[2019-07-14] MEDS: Acetaminophen 325 MG TAB PO SCH ×3 (00:05→12:04)
[2019-07-14] MEDS: Cyclobenzaprine 10 MG TAB PO PRN (00:06)
[2019-07-14] MEDS: Hydrocortisone Sod Succ/PF 100 mg/2 ml Vial IVP SCH ×3 (00:06→12:06)
[2019-07-14] MEDS: Ibuprofen 600 MG TAB PO SCH (05:05)
[2019-07-14] MEDS: Gabapentin 300 MG CAP PO SCH (09:06)
[2019-07-14] MEDS: Famotidine 20 MG TAB PO SCH (09:06)
[2019-07-14] MEDS: Enoxaparin Sodium 40 MG/0.4 ML SYRINGE SC SCH (09:06)
[2019-07-14 11:09] VITALS: TEMP 97.9
--- NOTE | 2019-07-14 12:01 | DIS ---
DATE OF ADMISSION: 07/11/2019 DATE OF DISCHARGE: 07/14/2019 ADMISSION DIAGNOSES: 1. Status post ground level fall. 2. Left distal femur fracture. DISCHARGE DIAGNOSES: 1. Status post ground level fall. 2. Left distal femur fracture, status post open reduction and internal fixation of left distal femur fracture, postop day 2. 3. Acute adrenal insufficiency, resolved. CONSULTING PHYSICIAN: Dr. Eitan Bucio. PROCEDURE: ORIF of left distal femur fracture. HOSPITAL COURSE: Ms. Saunders is a 59-year-old female, status post ground level fall. She sustained left distal femur fracture. She underwent ORIF of left distal femur fracture. Postop, the patient developed acute adrenal insufficiency with a blood pressure marginal systolic 90 and cortisol level 2.2. The patient has been treated with hydrocortisone IV. Her blood pressure is stable. The patient has been working with PT/OT. She tolerated with her regular diet and her pain is well controlled. She wishes to go home with home health. PHYSICAL EXAMINATION: GENERAL: The patient lying on bed, comfortable with no acute respiratory distress. VITAL SIGNS: Temperature 98, heart rate 70, respiratory rate 18, O2 saturation 95% on room air, and blood pressure 120/70. LUNGS: Clear bilaterally. HEART: Regular rate and rhythm. ABDOMEN: Soft, nondistended. EXTREMITIES: Postop dressing clean, dry, and intact. Neurovascularly intact x4. NEUROLOGIC: No focal neurology deficits. DISCHARGE DISPOSITION: Home with home health. DISCHARGE CONDITION: Good. DISCHARGE INSTRUCTIONS: The patient is to take medication as directed. The patient is encouraged to walk regularly with a walker. The patient is to see Dr. Bucio in 10 days. The patient is to have nonweightbearing of left lower extremity. The patient is to have a regular diet and activity as tolerated on other extremity. Job ID: [id number]
[2019-07-14] MEDS: traMADol HCl 50 MG TAB PO PRN (12:05)
[2019-07-14] MEDS: Carvedilol 6.25 MG TAB PO SCH (12:55)
[2019-07-14 12:56] VITALS: BP 106/63
--- NOTE | 2019-07-15 23:22 | PQF ---
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 Clinical indicators are provided on the bottom of this form for your review Please check appropriate box(s): HEART FAILURE: A. TYPE: [ x ] Systolic / HFrEF [ ] Diastolic / HFpEF [ ] Combined Systolic / Diastolic B. ACUITY [ ] Acute [ ] Acute on Chronic [ x ] Chronic [ ] Other diagnosis [ ] Unable to determine In addition, please specify: Present on Admission (POA): [x ] Yes [ ] No [ ] Unable to determine For continuity of documentation, please document condition throughout progress notes and discharge summary. Thank You. 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 All Rights Reserved [email or web address] [not provided] MTDD
== END 2019-07-14 12:59 | disposition home health service (06) | DRG 481 ==
LOC: ERS 17:31 → SURG A 19:53
PROVIDERS: ADMIT Surgery; ATTEND Surgery
PROC: 0QSC04Z Reposition Left Lower Femur with Internal Fixation Device, Open Approach (ICD-10-PCS; principal; 2019-07-12)
DX: S72.412A Displaced unspecified condyle fracture of lower end of left femur, initial encounter for closed fracture (principal); E27.40 Unspecified adrenocortical insufficiency; I50.22 Chronic systolic (congestive) heart failure; W01.0XXA Fall on same level from slipping, tripping and stumbling without subsequent striking against object, initial encounter; I25.10 Atherosclerotic heart disease of native coronary artery without angina pectoris; I11.0 Hypertensive heart disease with heart failure; F17.210 Nicotine dependence, cigarettes, uncomplicated; Z88.8 Allergy status to other drugs, medicaments and biological substances; Z95.810 Presence of automatic (implantable) cardiac defibrillator
CPT/HCPCS: 36415; 71045; 76000; 80048; 82533; 83735; 84100; 85025; 85610; 96374; 96375; C1713; C1769; G0390; J0131; J0690; J1100; J1170; J1650; J1720; J1885; J2001; J2250; J2270; J2405; J2704; J2795; J3010; S0020

== ENCOUNTER 2019-08-02 11:51 | Inpatient (IN) | payer OTHER ==
[~2019-08-02 11:51] MED LIST: Iopamidol-370 76% 500 ML 1 ML ONE
[2019-08-02 12:36] LABS: #Basophils 0.1 thou/uL (0.0-0.2); #Eosinphils 0.1 thou/uL (0.0-0.7); #Lymphocytes 1.5 thou/uL (1.20-3.40); #Monocytes 1.3 thou/uL (0.11-0.59); #Neutrophils 9.3 thou/uL (1.40-6.50); %Basophils 0.5 % (0.0-1.0); %Eosinophils 0.8 % (0.0-10.0); %Lymphocytes 12.3 % (21.0-51.0); %Monocytes 10.7 % (0.0-10.0); %Neutrophils 75.7 % (42.0-75.0); Hemoglobin 14.1 g/dL (12.0-16.0); Mean Corpuscular HGB CONC 33.2 g/dL (32.0-36.0); Mean Corpuscular Hemoglobin 32.1 pg (27.0-31.0); Mean Corpuscular Volume 96.9 fL (78.0-98.0); Platelet Count 279 thou/uL (130-400); RBC Distribution Width 11.3 % (11.5-14.5); Red Blood Cell (RBC) Count 4.38 mill/uL (4.20-5.40); White Blood Cell (WBC) Count 12.3 thou/uL (4.8-10.8)
[2019-08-02 12:58] LABS: ALT (SGPT) 12 U/L (8-55); AST (SGOT) 14 U/L (5-34); Albumin 3.6 g/dL (3.4-4.8); Alkaline Phosphatase 98 U/L (40-110); Anion Gap 11 mmol/L (10-20); BUN (Urea Nitrogen) 10 mg/dL (9.8-20.1); Bilirubin, Total 0.9 mg/dL (0.2-1.2); Calc. Creatinine Clearance 0 mL/min (70-130); Calcium 10.2 mg/dL (7.8-10.44); Carbon Dioxide 30 mmol/L (23-31); Chloride 96 mmol/L (98-107); Estimated GFR-MDRD 79; Globulin 3.7 g/dL (2.4-3.5); Glucose 111 mg/dL (80-115); Potassium 4.1 mmol/L (3.5-5.1); Protein, Total 7.3 g/dL (6.0-8.3); Sodium 133 mmol/L (136-145)
--- NOTE | 2019-08-02 13:55 | CT ---
CT ANGIOGRAM THORAX WITH IV CONTRAST AND 3-D RECONSTRUCTIONS CLINICAL INDICATION: Shortness of breath, hemoptysis, and right lateral chest pain which has worsened over the past 4 days . Patient had ORIF of left distal femur 3 weeks ago. COMPARISON: None FINDINGS: Pulmonary arteries: There are filling defects seen within right upper, middle, and right lower lobe s egmental and subsegmental pulmonary arteries suggesting pulmonary emboli. No definitive filling defect is seen within the left sided pulmonary arteries. Aorta: The aorta is normal in caliber without evidence of an aortic dissection. Lungs: Small right pleural effusion is present. Interstitial and alveolar opacities are seen in the r ight lower lobe with greater patchy parenchymal density at the right lung base. The patchy interstitial and alveolar opacities at the medial right lung base could be related to developing pulm onary parenchymal infarction, but pneumonitis is a possibility. The left lung is clear. Mediastinum: There is a mildly enlarged subcarinal lymph node measuring 1.3 cm in short axis dimensio n. There is also soft tissue density in the right hilar region measuring 1.2 cm in short axis dimension likely related to mildly enlarged lymph nodes. Thyroid gland: Normal CT appearance. Osseous structures: Degenerative changes are seen in the spine. There is calcification seen in the le ft anterolateral aspect of the central canal at the T2-3 level which does result in encroachment on the thoracic spinal cord. Chest wall: A triple lead left subclavian AICD device is noted in place. Upper abdomen: A lobulated 3.8 cm hypodense right adrenal lesion is present with a 1.7 cm hypodense l eft adrenal lesion present and suggestion of smaller subcentimeter hypodense lesions in the more superior aspect left adrenal gland. These hypodense lesions are unchanged when compared to prior CT l umbar spine on 12/26/2016. IMPRESSION: 1. Right upper, middle, and lower lobe pulmonary emboli with parenchymal changes at the right lung ba se posteriorly and medially which could be related to developing pulmonary infarction, but pneumonitis is also a possibility. Follow-up evaluation is recommended. 2. Small right pleural effusion and atelectasis. 3. Right hilar and mediastinal lymphadenopathy which may be reactive in origin. 4. Bilateral adrenal nodules with largest nodule on the right measuring 3.8 cm. These adrenal nodules were present on study in 2017. 5. Above findings discussed with MARYANN Paulino in the emergency department on 08/02/2019 at 1349 hours.
[2019-08-02] MEDS ORDERED: Enoxaparin Sodium 100 MG/ML SYRINGE ONE (14:29)
[2019-08-02 14:44] LABS: Bacteria/HPF None Seen HPF (None Seen); Bilirubin Negative (Negative); Blood, Urine 2+ (Negative); Clarity Clear (Clear); Glucose, Urine (Dipstick) Normal (Negative); Leukocyte Negative Leu/uL (Negative); Mucous/LPF Rare LPF (<2+); Nitrite Negative (Negative); Protein, Urine (Dipstick) 30 mg/dL (Neg-Trace); Squamous Epithelial None Seen HPF (0-3); Urobilinogen Normal mg/dL (Less than 2); WBC/HPF None Seen HPF (0-3)
--- NOTE | 2019-08-02 15:13 | PDOC.FPRHP ---
- History of Present Illness History of Present Illness: Pt reports last few days being SOB. Pt then states starting to have right sided lower rib pain. Pt then states yesterday finally was able to cought and noticed blood in her phlegm. Pt reports broke ankle back in February and has been healing from that. She then had a fall - Allergies/Adverse Reactions Allergies Allergy/AdvReac Type Severity Reaction Status Date / Time fentanyl AdvReac Severe hallucinate Verified 07/11/19 22:27 d - Home Medications Medication Instructions Recorded Confirmed Type Carvedilol 12.5 mg PO BID 12/25/16 07/11/19 History Sacubitril/Valsartan [Entresto 24 0.5 tab BID 03/08/19 07/11/19 History mg-26 mg Tablet] Aspirin 81 mg PO BID #60 tab.chew 03/09/19 07/11/19 Rx HYDROcodone/Acetaminophen [Manley 1 each PO Q6H PRN 13 Days #50 03/09/19 Rx 5-325 Tablet] tablet Ibuprofen [Motrin] 600 mg PO Q8HR tab 03/09/19 07/11/19 Rx Cholecalciferol (Vitamin D3) 10,000 unit PO ASDIR 07/11/19 07/11/19 History [Vitamin D] Acetaminophen [Tylenol Regular 650 mg PO Q6HR tab 07/14/19 Rx Strength] Gabapentin [Neurontin] 300 mg PO BID #20 cap 07/14/19 Rx Ibuprofen [Motrin] 600 mg PO Q8HR tab 07/14/19 Rx Sertraline HCl [Zoloft] 50 mg PO DAILY tab 07/14/19 Rx traMADol HCl [Ultram] 50 mg PO Q6HR #20 tab 07/14/19 Rx Comments: Takes Entresto. Still taking tramadol Pt never started zoloft. - History PMHx: CHF (Defibralator), 2 years ago broke both hip bones. PSHx: Hysterectomy, Left ankle surgery 02/2019, L. Knee sugery. FHx: Mother- Pancreatic Ca 67, Father- Lung Ca 65 Social: Pt quit smoking this week, 1 ppd smoker since age 14, No alcohol use, No illicit drug use. . Code: Full code. - Vital signs BP: [116/69] HR: [102] RR: [18] Tmax: [98.3] Pox: [95]% on [RA] Wt: [] FMR H&P: Results - Labs Result Diagrams: 08/02/19 12:04 08/02/19 12:04 Lab results: WBC 12.3 thou/uL (4.8-10.8) H 08/02/19 12:04 Hgb 14.1 g/dL (12.0-16.0) 08/02/19 12:04 Hct 42.4 % (36.0-47.0) 08/02/19 12:04 MCV 96.9 fL (78.0-98.0) 08/02/19 12:04 Plt Count 279 thou/uL (130-400) 08/02/19 12:04 Neutrophils % 75.7 % (42.0-75.0) H 08/02/19 12:04 Sodium 133 mmol/L (136-145) L 08/02/19 12:04 Potassium 4.1 mmol/L (3.5-5.1) 08/02/19 12:04 Chloride 96 mmol/L (98-107) L 08/02/19 12:04 Carbon Dioxide 30 mmol/L (23-31) 08/02/19 12:04 BUN 10 mg/dL (9.8-20.1) 08/02/19 12:04 Creatinine 0.75 mg/dL (0.6-1.1) 08/02/19 12:04 Glucose 111 mg/dL (80-115) 08/02/19 12:04 Lactic Acid 1.5 mmol/L (0.5-2.2) 08/02/19 12:04 Calcium 10.2 mg/dL (7.8-10.44) 08/02/19 12:04 Total Bilirubin 0.9 mg/dL (0.2-1.2) 08/02/19 12:04 AST 14 U/L (5-34) 08/02/19 12:04 ALT 12 U/L (8-55) 08/02/19 12:04 Alkaline Phosphatase 98 U/L (40-110) 08/02/19 12:04 B-Natriuretic Peptide Less than 10.0 pg/mL (0-100) 08/02/19 12:04 Serum Total Protein 7.3 g/dL (6.0-8.3) 08/02/19 12:04 Albumin 3.6 g/dL (3.4-4.8) 08/02/19 12:04 Urine Ketones Negative mg/dL (Negative) 08/02/19 14:15 Urine Blood 2+ (Negative) A 08/02/19 14:15 Urine Nitrite Negative (Negative) 08/02/19 14:15 Ur Leukocyte Esterase Negative Jorge A/uL (Negative) 08/02/19 14:15 Urine RBC 11-20 HPF (0-3) A 08/02/19 14:15 Urine WBC None Seen HPF (0-3) 08/02/19 14:15 Ur Squamous Epith Cells None Seen HPF (0-3) 08/02/19 14:15 Urine Bacteria None Seen HPF (None Seen) 08/02/19 14:15 FMR H&P: Upper Level - Plan Date/Time: 08/02/19 1511 I, [], have evaluated this patient and agree with findings/plan as outlined by web marketing intern resident. Pertinent changes/additions are listed here.
--- NOTE | 2019-08-02 16:26 | PDOC.FPRHP ---
- History of Present Illness Chief Complaint: Rib pain, SOB History of Present Illness: Pt is a 59 yo female who presents to ED complaint of SOB for the last few days. Pt then states she started to have right sided lower rib pain which has been worsening over the past 2 days. Pt then states yesterday finally was able to cough and noticed blood in her phlegm. Pt reports broke left ankle back in February 2019 and has been healing from that. She then had a fall in June 2019, suffering a left femur fracture. She then had a L ORIF of femur by Dr. Bucio on 07/12/19 here at [facility]. Patient was discharged home on 07/14/19 in good condition. She says she saw Dr. Bucio last week and he told her she was progressing well and advanced her to a brace that allows her to bend her knee to 60 degrees. notes she has not been moving much at home. Reports she mainly would only be mobile to get up and go to the bathroom. ED Course: Given Duoneb x 1, Randleman x 2, 100mg Lovenox. Found on CTA chest to have multiple pulmonary embolisms in right upper, middle, and lower lobes. - Allergies/Adverse Reactions Allergies Allergy/AdvReac Type Severity Reaction Status Date / Time fentanyl AdvReac Severe hallucinate Verified 08/02/19 18:28 d - Home Medications Medication Instructions Recorded Confirmed Type Carvedilol 12.5 mg PO BID 12/25/16 08/02/19 History Sacubitril/Valsartan [Entresto 24 0.5 tab BID 03/08/19 08/02/19 History mg-26 mg Tablet] HYDROcodone/Acetaminophen [Randleman 1 each PO Q6H PRN 13 Days #50 03/09/19 Rx 5-325 Tablet] tablet Cholecalciferol (Vitamin D3) 10,000 unit PO ASDIR 07/11/19 08/02/19 History [Vitamin D] Gabapentin [Neurontin] 300 mg PO BID #20 cap 07/14/19 08/02/19 Rx Ibuprofen [Motrin] 600 mg PO Q8HR PRN 08/02/19 08/02/19 History traMADol HCl [Ultram] 50 mg PO HS 08/02/19 08/02/19 History Comments: Takes Entresto, Carvedilol. Still taking tramadol, tylenol, motrin for pain control. Pt never started zoloft. - History PMHx: CHF (Defibrillator), 2 years ago broke both hip bones. PSHx: Hysterectomy, Left ankle surgery 02/2019, L. Femur/knee surgery 07/12/19 FHx: Mother- Pancreatic Ca 67, Father- Lung Ca 65 Social: Pt quit smoking this week, 1 ppd smoker since age 14, No alcohol use, No illicit drug use. . Code: Full code. - Review of Systems General: denies: fever/chills, weight/appetite/sleep changes, fatigue Eyes: denies: vision changes ENT: denies: nasal congestion Respiratory: reports: shortness of breath. denies: cough, congestion Cardiovascular: reports: chest pain. denies: palpitation, edema Gastrointestinal: denies: nausea, vomiting, diarrhea, constipation, abdominal pain Skin: denies: rashes, lesions Musculoskeletal: reports: tenderness. denies: pain, swelling Neurological: reports: weakness. denies: numbness - Vital signs BP: [116/69] HR: [102] RR: [18] Tmax: [98.3] Pox: [95]% on [RA] Wt: 104 kg - Physical Exam Constitutional: NAD, awake, alert and oriented, well developed HEENT: normocephalic and atraumatic, EOMI, conjunctiva clear, grossly normal vision, grossly normal hearing, MMM Neck: supple, FROM, no JVD -Chest: TTP over right lateral chest over ribs 5-9 Heart: normal S1/S2, no murmurs/rubs/gallops, pulses present, no edema -Heart: Tachycardic 100-105, regular rhythm. Lungs: no wheezing, no retractions -Lungs: Decreased breath sounds globally. Poor air movement in RLL. Scattered rhonchi in bilateral bases. Abdomen: soft, non-tender, bowel sounds present, no masses/distention Musculoskeletal: normal structure, normal tone -Musculoskeletal: Brace in place over left lower extremity, restricting motion. Neurological: normal sensation Skin: no rash/lesions, good turgor Heme/Lymphatic: no unusual bruising or bleeding Psychiatric: normal mood and affect, intact recent and remote memory -Psychiatric: tearful when discussing her current condition FMR H&P: Results - Labs Result Diagrams: 08/03/19 04:39 08/02/19 12:04 Lab results: WBC 12.3 thou/uL (4.8-10.8) H 08/02/19 12:04 Hgb 14.1 g/dL (12.0-16.0) 08/02/19 12:04 Hct 42.4 % (36.0-47.0) 08/02/19 12:04 MCV 96.9 fL (78.0-98.0) 08/02/19 12:04 Plt Count 279 thou/uL (130-400) 08/02/19 12:04 Neutrophils % 75.7 % (42.0-75.0) H 08/02/19 12:04 Sodium 133 mmol/L (136-145) L 08/02/19 12:04 Potassium 4.1 mmol/L (3.5-5.1) 08/02/19 12:04 Chloride 96 mmol/L (98-107) L 08/02/19 12:04 Carbon Dioxide 30 mmol/L (23-31) 08/02/19 12:04 BUN 10 mg/dL (9.8-20.1) 08/02/19 12:04 Creatinine 0.75 mg/dL (0.6-1.1) 08/02/19 12:04 Glucose 111 mg/dL (80-115) 08/02/19 12:04 Lactic Acid 1.5 mmol/L (0.5-2.2) 08/02/19 12:04 Calcium 10.2 mg/dL (7.8-10.44) 08/02/19 12:04 Total Bilirubin 0.9 mg/dL (0.2-1.2) 08/02/19 12:04 AST 14 U/L (5-34) 08/02/19 12:04 ALT 12 U/L (8-55) 08/02/19 12:04 Alkaline Phosphatase 98 U/L (40-110) 08/02/19 12:04 B-Natriuretic Peptide Less than 10.0 pg/mL (0-100) 08/02/19 12:04 Serum Total Protein 7.3 g/dL (6.0-8.3) 08/02/19 12:04 Albumin 3.6 g/dL (3.4-4.8) 08/02/19 12:04 Urine Ketones Negative mg/dL (Negative) 08/02/19 14:15 Urine Blood 2+ (Negative) A 08/02/19 14:15 Urine Nitrite Negative (Negative) 08/02/19 14:15 Ur Leukocyte Esterase Negative Jorge A/uL (Negative) 08/02/19 14:15 Urine RBC 11-20 HPF (0-3) A 08/02/19 14:15 Urine WBC None Seen HPF (0-3) 08/02/19 14:15 Ur Squamous Epith Cells None Seen HPF (0-3) 08/02/19 14:15 Urine Bacteria None Seen HPF (None Seen) 08/02/19 14:15 - Radiology Interpretation CT scan - chest Status: image reviewed by me, report reviewed by me (pulmonary embolism seen in right upper, middle, and lower lobes. Stable bilateral adrenal cysts.) FMR H&P: A/P - Problem List (1) Pulmonary embolism Current Visit: Yes Status: Acute Code(s): I26.99 - OTHER PULMONARY EMBOLISM WITHOUT ACUTE COR PULMONALE Qualifiers: Pulmonary embolism type: multiple subsegmental (without acute cor pulmonale) Qualified Code(s): I26.94 - Multiple subsegmental pulmonary emboli without acute cor pulmonale (2) Status post closed fracture of left femur Current Visit: Yes Status: Acute Code(s): Z87.81 - PERSONAL HISTORY OF ( HEALED) TRAUMATIC FRACTURE (3) Tobacco abuse Current Visit: Yes Status: Acute Code(s): Z72.0 - TOBACCO USE (4) Cardiac defibrillator in place Current Visit: Yes Status: Acute - Plan Patient is a 59 yo female who presents with right sided chest/rib pain and SOB is admitted for pulmonary embolism: #Pulmonary Embolism -multiple seen on CT chest in right upper, middle, and lower lobes -given Lovenox 100 mg in ED -will start Eliquis 10 mg BID for first 7 days and switch to 5 mg BID thereafter -place Incentive Spirometry at bedside and order scheduled with RT -Pulmonary rehab consult -Duoneb prn -place O2 while remains tachypenic -vitals q4h, monitor respiratory status #S/P Left Femur Fracture -ORIF on 07/12/[address] Bucio -Consult Ortho, call in the AM -Consult Trauma team d/t recent admission for fracture tx -continue Tramadol, Tylenol, and Ibuprofen for pain control -consult Physical & Occupational therapy #CAD w Defibrillator in place -placed 3 years ago for "weak heart" -currently in NSR on EKG -continue home meds: Entresto, Carvedilol #Tobacco Abuse -has smoked 1 ppd since age 14 -Nicotine patch -Tobacco cessation counseling Diet: Regular VTE: Eliquis 5 mg BID Code status: FULL PCP: NAGA Ann Dispo: Stable, admitted to inpatient on telemetry. Continue to monitor respiratory status & hemodynamics. Anticipate LOS >48 hrs. FMR H&P: Upper Level - Pertinent history I was present with the design intern, Dr. Morales, during the HPI. I scribed the above document. I made edits as needed. Please see above for detailed HPI. - Pertinent findings Pt had diffuse crackles and decreased lung sounds on right side. Pt had increased work of breathing. Pt sats would drop to mid 80s when talking. Unsure if this was related to O2 monitor placement. Left leg was in brace. No sign of redness. Incision intact and dry. Pt had some mild swelling. No pain on palpation of calves bilaterally. - Plan Date/Time: 08/02/19 4207 I, Kailyn Lares PGY-3, have evaluated this patient and agree with findings/plan as outlined by design intern resident. Pertinent changes/additions are listed here. I have reviewed the above A/P and made edits above as needed. Please see above for detailed plan. At this time we will admit pt for pulmonary embolism. Likely related to pt being relatively sedentary post op. Pt got therapeutic lovenox in ER. Will start therapeutic eliquis and continue and plan to continue upon discharge. Will continue to monitor patients resp status. Trauma team consulted and will plan on consulting ortho in AM. Appreciate recs. Addendum - Attending - Attending Attestation Date/Time: 08/03/19 0051 I personally evaluated the patient and discussed the management with Dr. Romano at time of admission. See separate note. I agree with the History, Examination, Assessment and Plan documented above with any addition or exceptions noted below.
[2019-08-02] MEDS ORDERED: HYDROcodone/Acetaminophen 5/325 mg Tablet ONE (17:05)
[2019-08-02] MEDS ORDERED: Acetaminophen 650 MG Suppository PR PRN (17:37)
[2019-08-02] MEDS ORDERED: Acetaminophen 325 MG TAB PO PRN (17:37)
[2019-08-02] MEDS ORDERED: Ondansetron PF 4 MG/2 ML Vial IVP PRN (17:37)
[2019-08-02] MEDS ORDERED: Ondansetron ODT 4 MG TAB PO PRN (17:37)
--- NOTE | 2019-08-02 17:38 | PDOC.BPN ---
- Brief Progress Note Date/Time: 08/02/19 9143 I personally evaluated the patient and discussed the management with Dr. Romano. HP pending. I agree with the History, Examination, Assessment and Plan as discussed. Patient notes she is a patient of Dr Pino at [facility] in [place]. When she called today to be seen, was referred to ER. Found to have Pulmondary Emboli. Anticoag initated. Consult with trauma surg.
[2019-08-02 18:15] VITALS: BMI 35.2
[2019-08-02] MEDS ORDERED: Sodium Chloride 0.9% 1,000 ML IV SCH (18:50)
[2019-08-02] MEDS: Famotidine 20 MG TAB PO SCH (22:02)
[2019-08-02] MEDS: Apixaban 5 MG TAB PO SCH (22:02)
[2019-08-02] MEDS: Famotidine/PF 20 mg/2ml Vial SLOW IVP SCH (22:03)
[2019-08-03] MEDS: traMADol HCl 50 MG TAB PO PRN ×4 (01:20→14:56)
[2019-08-03 05:00] LABS: Eosinophils 1 % (0-10); Hemoglobin 11.8 g/dL (12.0-16.0); Lymphocytes 17 % (21-51); MDiff Complete? YES; Mean Corpuscular HGB CONC 31.8 g/dL (32.0-36.0); Mean Corpuscular Hemoglobin 30.9 pg (27.0-31.0); Mean Corpuscular Volume 97.1 fL (78.0-98.0); Mean Platelet Volume 8.6 fL (7.4-10.4); Monocytes 12 % (0-10); Neutrophil 70 % (42-75); Platelet Count 211 thou/uL (130-400); Platelet Morphology Comment Appears Adequate; RBC Distribution Width 11.3 % (11.5-14.5); White Blood Cell (WBC) Count 10.7 thou/uL (4.8-10.8)
--- NOTE | 2019-08-03 06:58 | PDOC.FM ---
- Subjective Subjective: Patient resting comfortably in bed this morning. She denies any chest pain or SOB this morning. Her O2 sats have remained >90% at rest since admission. She does says she has some right back and left knee pain this morning, rates 5 or 6 out of 10. Says pain does improve when she takes her pain medication (Tylenol, Motrin, Tramadol). - Objective Vital Signs & Weight: Vital Signs (12 hours) Temp Pulse Resp BP Pulse Ox 08/03/19 04:00 98 F 82 16 109/53 L 95 08/02/19 23:19 97.4 F L 83 16 116/71 93 L 08/02/19 20:00 94 L 08/02/19 19:35 98 F 85 16 105/60 94 L Weight Weight 92.941 kg I&O: 08/01/19 08/02/19 08/03/19 06:59 06:59 06:59 Intake Total 320 Balance 320 Result Diagrams: 08/03/19 04:39 08/02/19 12:04 Phys Exam - Physical Examination Constitutional: NAD HEENT: moist MMs, sclera anicteric Neck: no JVD, supple, full ROM Respiratory: no wheezing, no rales, no rhonchi Decreased breath sounds at lung bases. Cardiovascular: RRR, no significant murmur Gastrointestinal: soft, non-tender, no distention, positive bowel sounds Musculoskeletal: no edema, pulses present TTP over right lateral chest and right upper back Neurological: normal sensation Psychiatric: normal affect, A&O x 3 Skin: no rash, normal turgor Dx/Plan (1) Pulmonary embolism Code(s): I26.99 - OTHER PULMONARY EMBOLISM WITHOUT ACUTE COR PULMONALE Status : Acute Qualifiers: Pulmonary embolism type: multiple subsegmental (without acute cor pulmonale) Qualified Code(s): I26.94 - Multiple subsegmental pulmonary emboli without acute cor pulmonale (2) Status post closed fracture of left femur Code(s): Z87.81 - PERSONAL HISTORY OF (HEALED) TRAUMATIC FRACTURE Status: Acute (3) Tobacco abuse Code(s): Z72.0 - TOBACCO USE Status: Acute (4) Cardiac defibrillator in place Status: Acute - Plan Plan: Patient is a 59 yo female who presents with right sided chest/rib pain and SOB is admitted for pulmonary embolism: #Pulmonary Embolism -multiple PE seen on CT chest in right upper, middle, and lower lobes -given Lovenox 100 mg in ED -will start Eliquis 10 mg BID for first 7 days and switch to 5 mg BID thereafter -place Incentive Spirometry at bedside and order scheduled with RT -Pulmonary rehab consult -Yunior prn -place O2 while remains tachypnic -vitals q4h, monitor respiratory status -O2 sat has remained >90% while at rest since admission #S/P Left Femur Fracture -ORIF on 07/12/[address] Bucio -Consult Trauma team d/t recent admission for fracture tx -continue Tramadol, Tylenol, and Ibuprofen for pain control -consult Physical & Occupational therapy #CAD w Defibrillator in place -placed 3 years ago for "weak heart" -currently in NSR on EKG -continue home meds: Entresto, Carvedilol #Tobacco Abuse -has smoked 1 ppd since age 14 -Nicotine patch -Tobacco cessation counseling Diet: Regular VTE: Eliquis 5 mg BID Code status: FULL PCP: NAGA Ann Dispo: Stable, admitted to inpatient on telemetry. Continue to monitor respiratory status & hemodynamics. Evaluation by PT and OT today. Anticipate LOS >48 hrs. Addendum - Attending - Attending Attestation Date/Time: 08/03/19 0941 I personally evaluated the patient and discussed the management with Dr. Morales and team. I agree with and repeated the History, Examination, Assessment and Plan documented above with any addition or exceptions noted below. Anticoagulation. Dispo pending P&T eval.
[2019-08-03] MEDS: Famotidine/PF 20 mg/2ml Vial SLOW IVP SCH ×2 (08:02→21:49)
[2019-08-03] MEDS: Apixaban 5 MG TAB PO SCH ×2 (08:02→21:47)
[2019-08-03] MEDS: Famotidine 20 MG TAB PO SCH ×2 (08:02→21:49)
--- NOTE | 2019-08-03 14:03 | CON ---
DATE OF CONSULTATION: 08/03/2019 REQUESTING PHYSICIAN: Amanda Morales DO. HISTORY OF PRESENT ILLNESS: Ms. Saunders is a 59-year-old woman, known to the trauma service. The patient is postoperative day #22, status post ORIF of left femur fracture, which she sustained following a ground-level fall. She was discharged on 07/14/2019 with home health and physical therapy. This was at the request of the patient, who declined transfer to inpatient rehabilitation. She was readmitted yesterday with worsening pleuritic chest pain, associated with dyspnea. She was found with multiple pulmonary emboli. This morning, she is awake and alert. She is still complaining of a pleuritic chest pain with deep inspiration. She denies any syncope. PAST MEDICAL HISTORY: Significant for: 1. Coronary artery disease. 2. Chronic congestive heart failure. 3. Previous left ankle and left femur fractures following ground-level falls. PAST SURGICAL HISTORY: Pertinent for: 1. ORIF of left ankle fracture in February. 2. ORIF of left femur fracture in 06/2019. Other pertinent surgical history includes hysterectomy. SOCIAL HISTORY: The patient smokes approximately 1 pack of cigarettes per day and denies any ethanol abuse. FAMILY HISTORY: Noncontributory for this patient's age. PREHOSPITALIZATION MEDICATIONS: Includes: 1. Carvedilol 12.5 mg p.o. b.i.d. 2. Gabapentin 300 mg p.o. b.i.d. 3. Ibuprofen 600 mg p.o. q.8 h. p.r.n. pain. 4. Hydrocodone 5/325 p.o. q.6h. p.r.n. 5. Entresto . 6. Vitamin D 10,000 units p.o. ALLERGIES: TO FENTANYL. REVIEW OF SYSTEMS: Ten-point review of systems essentially unremarkable except as stated in past medical history and chief complaint. PHYSICAL EXAMINATION: GENERAL: A 59-year-old normally developed woman, who is otherwise coherent and interactive, and appears stated age. The patient is alert and oriented x3. Appears to be in no acute distress at the time of my evaluation. VITAL SIGNS: Currently include blood pressure 119/63, pulse is 84, respiratory rate is 16, temperature 98.4 degrees Fahrenheit, oxygen saturation 93% on 2L by nasal cannula oxygen. HEART: Regular rate and rhythm. LUNGS: Bibasilar rhonchi. Breathing regular and nonlabored. ABDOMEN: Soft, nontender, and nondistended. EXTREMITIES: 2+ radial and pedal pulses bilaterally. No ankle edema is present. NEUROLOGIC: No focal deficits present. IMAGING STUDIES: I have personally reviewed radiographic studies obtained yesterday including chest CT angiography, which is remarkable for multilobar pulmonary emboli involving the right upper, middle, and lower lobes. This emboli consistent with the patient's complaint of right pleuritic chest pain. LABORATORY FINDINGS: Today include a CBC with 10,700 white blood cells, hemoglobin and hematocrit 11.8 and 36.9 respectively, and platelet count is 211,000. IMPRESSIONS: 1. Postoperative day #22, status post open reduction and internal fixation of left femur fracture. 2. Acute multilobar pulmonary emboli. PLAN: 1. I agree with current anticoagulation. 2. Initiate physical and occupational therapy. 3. I have discussed with the patient of the need to be placed in inpatient rehabilitation following this discharge. The patient concurs at this time. I have answered her questions. Thank you again, Dr. Morales, for allowing me the opportunity to participate in the care of this patient. Trauma Surgery would defer further medical management to Primary Service. Job ID: [id number]
[2019-08-03] MEDS ORDERED: Ibuprofen 600 MG TAB PO PRN (14:17)
[2019-08-03 15:21] LABS: Hemoglobin 12.1 g/dL (12.0-16.0)
[2019-08-03] MEDS: traMADol HCl 50 MG TAB PO SCH (21:47)
[2019-08-03] MEDS: Carvedilol 25 MG TAB PO SCH (21:47)
[2019-08-03] MEDS: Gabapentin 300 MG CAP PO SCH (21:47)
--- NOTE | 2019-08-03 23:27 | PRG ---
DATE OF SERVICE: 08/03/2019 SUBJECTIVE: The patient was seen this evening, sitting up in bed with no signs of acute distress. She does have nasal cannula oxygen in place and she reports she has occasional shortness of breath and back pain. Otherwise, she reports that her condition is not worsening. Reports pain in her left lower extremity is well controlled. OBJECTIVE: VITAL SIGNS: Temperature 98.8, pulse 88, respirations 16, oxygen saturation 96% on 2 L nasal cannula. GENERAL: Well-appearing elderly female, sitting up in bed with no signs of acute distress. PULMONARY: Equal chest rise and fall. No signs of acute respiratory distress. Nasal cannula in place. ASSESSMENT: 1. Status post distal femur fracture with open reduction and internal fixation on July 12. 2. Acute multilobar pulmonary emboli, stable. 3. History of congestive heart failure, automatic implantable cardioverter defibrillator, osteoarthritis, and coronary artery disease. PLAN: Continue current diet and pain regimen. Continue physical and occupational therapy. Continue Eliquis as recommended by hospitalist team. Medical management per hospitalist team. The patient will be discharge to acute rehab facility when deemed appropriate. Job ID: [id number]
[2019-08-04 04:50] LABS: #Eosinphils 0.3 thou/uL (0.0-0.7); #Monocytes 0.9 thou/uL (0.11-0.59); #Neutrophils 5.7 thou/uL (1.40-6.50); %Basophils 0.3 % (0.0-1.0); %Eosinophils 3.5 % (0.0-10.0); %Lymphocytes 22.5 % (21.0-51.0); %Monocytes 10.2 % (0.0-10.0); %Neutrophils 63.5 % (42.0-75.0); Hemoglobin 11.2 g/dL (12.0-16.0); Mean Corpuscular HGB CONC 32.8 g/dL (32.0-36.0); Mean Corpuscular Hemoglobin 31.7 pg (27.0-31.0); Mean Corpuscular Volume 96.7 fL (78.0-98.0); Mean Platelet Volume 8.8 fL (7.4-10.4); Platelet Count 253 thou/uL (130-400); RBC Distribution Width 11.2 % (11.5-14.5); Red Blood Cell (RBC) Count 3.54 mill/uL (4.20-5.40)
[2019-08-04 05:08] LABS: Anion Gap 8 mmol/L (10-20); BUN (Urea Nitrogen) 13 mg/dL (9.8-20.1); Calc. Creatinine Clearance 114 mL/min (70-130); Calcium 9.9 mg/dL (7.8-10.44); Carbon Dioxide 32 mmol/L (23-31); Chloride 95 mmol/L (98-107); Estimated GFR-MDRD 77; Glucose 112 mg/dL (80-115); Sodium 131 mmol/L (136-145)
--- NOTE | 2019-08-04 05:37 | PDOC.FM ---
- Subjective Subjective: Patient lying in bed resting comfortably this morning. She says she was able to walk some with PT therapy in her room to bathroom and back. During that time her O2 sat was 86% on room air. She has been requiring 2L O2 for most of the day & night for past 24 hours. This morning she denies any chest pain or SOB. Does have some right sided rib pain and increased pain with deep inspiration. She did speak to Trauma team yesterday and reaffirmed this morning as well that she desires to now go to inpatient rehab for continued therapy. - Objective Vital Signs & Weight: Vital Signs (12 hours) Temp Pulse Resp BP Pulse Ox 08/04/19 04:00 98.5 F 83 16 111/65 96 08/04/19 00:00 98.7 F 78 16 91/55 L 94 L 08/03/19 19:20 98.8 F 88 16 113/71 96 Weight Weight 92.941 kg I&O: 08/02/19 08/03/19 08/04/19 06:59 06:59 06:59 Intake Total 320 987 Balance 320 987 Result Diagrams: 08/04/19 04:11 08/04/19 04:11 Phys Exam - Physical Examination Constitutional: NAD HEENT: moist MMs Neck: no JVD, supple, full ROM Respiratory: no wheezing, no rhonchi Decreased breath sounds at bilateral bases Cardiovascular: RRR, no significant murmur Gastrointestinal: soft, non-tender, no distention, positive bowel sounds Musculoskeletal: no edema, pulses present Neurological: normal sensation Psychiatric: A&O x 3 Deviation from normal: depressed affect Skin: no rash, normal turgor Dx/Plan (1) Pulmonary embolism Code(s): I26.99 - OTHER PULMONARY EMBOLISM WITHOUT ACUTE COR PULMONALE Status : Acute Qualifiers: Pulmonary embolism type: multiple subsegmental (without acute cor pulmonale) Qualified Code(s): I26.94 - Multiple subsegmental pulmonary emboli without acute cor pulmonale (2) Status post closed fracture of left femur Code(s): Z87.81 - PERSONAL HISTORY OF (HEALED) TRAUMATIC FRACTURE Status: Acute (3) Tobacco abuse Code(s): Z72.0 - TOBACCO USE Status: Acute (4) Cardiac defibrillator in place Status: Acute - Plan Plan: Patient is a 59 yo female who presents with right sided chest/rib pain and SOB is admitted for pulmonary embolism: #Pulmonary Embolism -multiple PE seen on CT chest in right upper, middle, and lower lobes -given Lovenox 100 mg in ED -start Eliquis 10 mg BID for first 7 days (until 08/10) and switch to 5 mg BID thereafter -place Incentive Spirometry at bedside and order scheduled with RT -Pulmonary rehab consult -Duoneb prn -place O2 while remains tachypnic -vitals q4h, monitor respiratory status -O2 sat with PT after walking to bathroom was 86-88% on RA, patient has been requiring 2L O2 via N/C for past 24 hrs with O2 sat 94-99% #S/P Left Femur Fracture -ORIF on 07/12/[address] Bucio -Consult Trauma team d/t recent admission for fracture tx -continue Tramadol, Tylenol, and Ibuprofen for pain control -consult Physical & Occupational therapy #CAD w Defibrillator in place -placed 3 years ago for "weak heart" -currently in NSR on EKG -continue home meds: Entresto, Carvedilol #Tobacco Abuse -has smoked 1 ppd since age 14 -Nicotine patch -Tobacco cessation counseling-patient states has not smoked in past week, says she is going to quit now #Depressed Affect -declined to take Zoloft at last admission -discussion had with patient regarding risks, benefits, alternatives of starting SSRI, patient currently hesistant because she thinks will cause her to have too many physician visits although is still considering wanting to start a medication -will continue to have discussion Social: Patient with minimal activity at home since surgery. performing almost all ADLs on her behalf. Discussion with patient yesterday about home health vs inpatient rehab. She previously declined Home health services. Now she agrees with plan for short rehab stay for continued PT/OT. Case Management sent referral for inpatient [facility] on 08/03, pending screen by Connor today. Diet: Regular VTE: Eliquis 10 mg BID Code status: FULL PCP: NAGA Ann Dispo: Stable, admitted to inpatient on telemetry. Continue to monitor respiratory status & hemodynamics. Pending discharge to inpatient rehab facility. Anticipate discharge in <48 hrs. Addendum - Attending - Attending Attestation Date/Time: 08/04/19 8557 I personally evaluated the patient and discussed the management with the team. I agree with the History, Examination, Assessment and Plan documented above with any addition or exceptions noted below. Improved shortness of breath and sharepoint solutions architect mood today. Await placement.
[2019-08-04] MEDS: Famotidine/PF 20 mg/2ml Vial SLOW IVP SCH ×2 (08:54→20:58)
[2019-08-04] MEDS: Apixaban 5 MG TAB PO SCH ×2 (08:58→20:57)
[2019-08-04] MEDS: Carvedilol 25 MG TAB PO SCH ×2 (08:58→20:57)
[2019-08-04] MEDS: Famotidine 20 MG TAB PO SCH ×2 (08:59→20:57)
[2019-08-04] MEDS: Gabapentin 300 MG CAP PO SCH ×2 (08:59→20:58)
[2019-08-04] MEDS: HYDROcodone/Acetaminophen 5/325 mg Tablet PO PRN ×2 (08:59→15:20)
[2019-08-04] MEDS: traMADol HCl 50 MG TAB PO SCH (20:56)
[2019-08-05] MEDS: HYDROcodone/Acetaminophen 5/325 mg Tablet PO PRN ×3 (04:25→17:58)
--- NOTE | 2019-08-05 05:57 | PDOC.FM ---
- Subjective Subjective: Patient resting comfortably in bed this morning. She asks when she will be able to transfer to rehab and when she should anticipate going home. Transfer is pending insurance authorization. Patient states that she does not want to start anything to help with her mood at this point. She has been doing well working with PT and OT. This morning patient complains of some left knee pain but states it is "tolerable" on current pain medication regimen. She has been doing incentive spirometry up to 1000, goal currently set at 1500. Complains of sharp pain with deep inspiration on right lateral chest wall. - Objective Vital Signs & Weight: Vital Signs (12 hours) Temp Pulse Resp BP Pulse Ox 08/05/19 03:40 98.4 F 80 16 115/61 92 L 08/04/19 23:38 98.7 F 86 16 107/58 L 92 L 08/04/19 21:34 18 08/04/19 19:54 98.5 F 80 16 122/51 L 94 L Weight Weight 92.941 kg I&O: 08/03/19 08/04/19 08/05/19 06:59 06:59 06:59 Intake Total 320 1227 900 Balance 320 1227 900 Result Diagrams: 08/04/19 04:11 08/04/19 04:11 Phys Exam - Physical Examination Constitutional: NAD HEENT: moist MMs, sclera anicteric Neck: supple, full ROM Respiratory: no wheezing, no rhonchi diminished breath sounds at bilateral lung bases Cardiovascular: RRR, no significant murmur Gastrointestinal: soft, non-tender, no distention, positive bowel sounds Musculoskeletal: pulses present 1+ pitting edema in left LE TTP over right lateral chest and right upper back Neurological: normal sensation Psychiatric: normal affect, A&O x 3 Skin: no rash, normal turgor Dx/Plan (1) Pulmonary embolism Code(s): I26.99 - OTHER PULMONARY EMBOLISM WITHOUT ACUTE COR PULMONALE Status : Acute Qualifiers: Pulmonary embolism type: multiple subsegmental (without acute cor pulmonale) Qualified Code(s): I26.94 - Multiple subsegmental pulmonary emboli without acute cor pulmonale (2) Status post closed fracture of left femur Code(s): Z87.81 - PERSONAL HISTORY OF (HEALED) TRAUMATIC FRACTURE Status: Acute (3) Tobacco abuse Code(s): Z72.0 - TOBACCO USE Status: Acute (4) Cardiac defibrillator in place Status: Acute - Plan Plan: Patient is a 59 yo female who presents with right sided chest/rib pain and SOB is admitted for pulmonary embolism: #Pulmonary Embolism -multiple PE seen on CT chest in right upper, middle, and lower lobes -given Lovenox 100 mg in ED -start Eliquis 10 mg BID for first 7 days (until 08/10) and switch to 5 mg BID thereafter -place Incentive Spirometry at bedside and order scheduled with RT -Duoneb prn -place O2 while remains tachypnic & to keep sats >92% -vitals q4h, monitor respiratory status -O2 sat with PT after walking to bathroom was 86-88% on RA, patient has been requiring 2L O2 via N/C for past 24 hrs with O2 sat 92-95% #S/P Left Femur Fracture -ORIF on 07/12/[address] Bucio -Consult Trauma team d/t recent admission for fracture tx -continue Tramadol, Tylenol, and Ibuprofen for pain control -consult Physical & Occupational therapy #CAD w Defibrillator in place -placed 3 years ago for "weak heart" -currently in NSR on EKG -continue home meds: Entresto, Carvedilol #Tobacco Abuse -has smoked 1 ppd since age 14 -Nicotine patch -Tobacco cessation counseling-patient states has not smoked in past week, says she is going to quit now #Depressed Affect -declined to take Zoloft at last admission -discussion had with patient regarding risks, benefits, alternatives of starting SSRI, patient currently hesistant because she thinks will cause her to have too many physician visits although is still considering wanting to start a medication -will continue to have discussion Social: Patient with minimal activity at home since surgery. performing almost all ADLs on her behalf. Discussion with patient on 08/03 about home health vs inpatient rehab. She previously declined Home health services. Now she agrees with plan for short rehab stay for continued PT/OT. Case Management sent referral for inpatient [facility] on 08/03, prior auth for insurance sent 08/04. Currently awaiting placement. Diet: Regular VTE: Eliquis 10 mg BID GI PPX: Pepcid BID Code status: FULL PCP: NAGA Ann Dispo: Stable, admitted to inpatient on telemetry. Continue to monitor respiratory status & hemodynamics. Pending placement at inpatient rehab facility , awaiting insurance approval. Anticipate discharge in <48 hrs. Addendum - Attending - Attending Attestation Date/Time: 08/05/19 8277 I personally evaluated the patient and discussed the management with the team. I agree with the History, Examination, Assessment and Plan documented above with any addition or exceptions noted below.
[2019-08-05] MEDS: Famotidine/PF 20 mg/2ml Vial SLOW IVP SCH ×2 (09:20→20:21)
[2019-08-05] MEDS: Apixaban 5 MG TAB PO SCH ×2 (09:21→20:21)
[2019-08-05] MEDS: Famotidine 20 MG TAB PO SCH ×2 (09:22→20:24)
[2019-08-05] MEDS: Carvedilol 25 MG TAB PO SCH ×2 (09:22→20:22)
[2019-08-05] MEDS: Gabapentin 300 MG CAP PO SCH ×2 (09:22→20:21)
[2019-08-05] MEDS ORDERED: Polyethylene Glycol 3350 17 GM Packet PO SCH (11:00)
[2019-08-05] MEDS ORDERED: Senokot 8.6 MG TAB PO SCH (11:00)
[2019-08-05] MEDS: traMADol HCl 50 MG TAB PO SCH (20:34)
--- NOTE | 2019-08-06 06:04 | PDOC.FM ---
- Subjective Subjective: Patient seen lying in bed this morning, no complaints. Still awaiting insurance approval for transfer to [facility] inpatient facility. - Objective Vital Signs & Weight: Vital Signs (12 hours) Temp Pulse Resp BP Pulse Ox 08/06/19 03:15 98.8 F 70 20 118/84 93 L 08/05/19 23:23 98.9 F 76 20 111/59 L 94 L 08/05/19 19:25 98.7 F 80 20 119/69 94 L Weight Weight 92.941 kg I&O: 08/04/19 08/05/19 08/06/19 06:59 06:59 06:59 Intake Total 1227 1150 900 Balance 1227 1150 900 Result Diagrams: 08/04/19 04:11 08/04/19 04:11 Phys Exam - Physical Examination Constitutional: NAD HEENT: moist MMs Neck: supple, full ROM Respiratory: no rhonchi, clear to auscultation bilateral scattered expiratory wheezing heard anteriorly Cardiovascular: RRR, no significant murmur Gastrointestinal: soft, non-tender, no distention, positive bowel sounds Musculoskeletal: pulses present 1+ pitting edema in LLE Neurological: normal sensation, moves all 4 limbs Psychiatric: normal affect, A&O x 3 Skin: no rash, normal turgor Dx/Plan (1) Pulmonary embolism Code(s): I26.99 - OTHER PULMONARY EMBOLISM WITHOUT ACUTE COR PULMONALE Status : Acute Qualifiers: Pulmonary embolism type: multiple subsegmental (without acute cor pulmonale) Qualified Code(s): I26.94 - Multiple subsegmental pulmonary emboli without acute cor pulmonale (2) Status post closed fracture of left femur Code(s): Z87.81 - PERSONAL HISTORY OF (HEALED) TRAUMATIC FRACTURE Status: Acute (3) Tobacco abuse Code(s): Z72.0 - TOBACCO USE Status: Acute (4) Cardiac defibrillator in place Status: Acute - Plan Plan: Patient is a 59 yo female who presents with right sided chest/rib pain and SOB is admitted for pulmonary embolism: #Pulmonary Embolism -multiple PE seen on CT chest in right upper, middle, and lower lobes -given Lovenox 100 mg in ED -start Eliquis 10 mg BID for first 7 days (until 08/10) and switch to 5 mg BID thereafter -place Incentive Spirometry at bedside and order scheduled with RT -Duoneb prn -place O2 while remains tachypnic & to keep sats >92% -vitals q4h, monitor respiratory status -O2 sat with PT after walking to bathroom was 86-88% on RA, patient has been requiring 2L O2 via N/C for past 24 hrs with O2 sat 92-95% #S/P Left Femur Fracture -ORIF on 07/12/[address] Bucio -Consult Trauma team d/t recent admission for fracture tx -continue Tramadol, Tylenol, and Ibuprofen for pain control -consult Physical & Occupational therapy #CAD w Defibrillator in place -placed 3 years ago for "weak heart" -currently in NSR on EKG -continue home meds: Entresto, Carvedilol #Tobacco Abuse -has smoked 1 ppd since age 14 -Nicotine patch -Tobacco cessation counseling-patient states has not smoked in past week, says she is going to quit now #Depressed Affect -declined to take Zoloft at last admission -discussion had with patient regarding risks, benefits, alternatives of starting SSRI, patient currently hesistant because she thinks will cause her to have too many physician visits although is still considering wanting to start a medication -will continue to have discussion, as of 08/06 patient still declines any medication for depression symptoms Social: Patient with minimal activity at home since surgery. performing almost all ADLs on her behalf. Discussion with patient on 08/03 about home health vs inpatient rehab. She previously declined Home health services. Now she agrees with plan for short rehab stay for continued PT/OT. Case Management sent referral for inpatient [facility] on 08/03, prior auth for insurance sent 08/04. Currently awaiting placement. Diet: Regular VTE: Eliquis 10 mg BID GI PPX: Pepcid BID Code status: FULL PCP: NAG[facility] Ann Dispo: Patient is stable for discharge to rehab facility once bed is approved. Currently placed in discharge hold on telemetry. Continue to monitor respiratory status & hemodynamics. Pending placement at inpatient rehab facility , awaiting insurance approval. Addendum - Attending - Attending Attestation Date/Time: 08/06/19 4995 I personally evaluated the patient and discussed the management with the team. I agree with the History, Examination, Assessment and Plan documented above with any addition or exceptions noted below. she is symptomatically improving. I spent approximately 25 minutes coordinating care on the floor today and directly answering questions about PE, anticoagulation, etc.
[2019-08-06] MEDS: Gabapentin 300 MG CAP PO SCH (09:33)
[2019-08-06] MEDS: Famotidine 20 MG TAB PO SCH (09:33)
[2019-08-06] MEDS: Carvedilol 25 MG TAB PO SCH (09:34)
[2019-08-06] MEDS: Apixaban 5 MG TAB PO SCH (09:34)
[2019-08-06] MEDS: Famotidine/PF 20 mg/2ml Vial SLOW IVP SCH (09:35)
[2019-08-06] MEDS: HYDROcodone/Acetaminophen 5/325 mg Tablet PO PRN (13:04)
[2019-08-06 15:52] VITALS: BP 114/56; TEMP 99
[2019-08-06] MEDS: traMADol HCl 50 MG TAB PO PRN (17:17)
== END 2019-08-06 19:56 | DRG 176 ==
LOC: ERS 11:51 → 2SE 18:01
PROVIDERS: ADMIT Family Medicine; ATTEND Family Medicine
DX: I26.99 Other pulmonary embolism without acute cor pulmonale (principal); F32.9 Major depressive disorder, single episode, unspecified; I25.10 Atherosclerotic heart disease of native coronary artery without angina pectoris; I50.9 Heart failure, unspecified; Z87.81 Personal history of (healed) traumatic fracture; Z95.810 Presence of automatic (implantable) cardiac defibrillator; Z90.710 Acquired absence of both cervix and uterus
CPT/HCPCS: 36415; 71275; 80048; 80053; 81003; 81015; 83605; 83880; 84484; 85007; 85025; 85027; 93005; 94640; A4353; J1650; J7620; Q9967

== ENCOUNTER 2020-01-28 07:18 | Outpatient (CLI) | payer OTHER ==
[2020-01-28 16:46] LABS: Mean Corpuscular HGB CONC 32.6 g/dL (32.0-36.0); Mean Corpuscular Hemoglobin 31.4 pg (27.0-31.0); Mean Corpuscular Volume 96.5 fL (78.0-98.0); Mean Platelet Volume 9.9 fL (7.4-10.4); Platelet Count 189 thou/uL (130-400); RBC Distribution Width 11.8 % (11.5-14.5); Red Blood Cell (RBC) Count 4.78 mill/uL (4.20-5.40); White Blood Cell (WBC) Count 7.4 thou/uL (4.8-10.8)
[2020-01-28 16:51] LABS: Anion Gap 9 mmol/L (10-20); BUN (Urea Nitrogen) 8 mg/dL (9.8-20.1); Calc. Creatinine Clearance 0 mL/min (70-130); Calcium 9.2 mg/dL (7.8-10.44); Carbon Dioxide 27 mmol/L (23-31); Chloride 107 mmol/L (98-107); Estimated GFR-MDRD 74; Glucose 90 mg/dL (80-115); Potassium 4.2 mmol/L (3.5-5.1); Sodium 139 mmol/L (136-145)
[2020-01-29 12:15] LABS: SARS-CoV-2 MS2 Positive; SARS-CoV-2 N Gene Negative; SARS-CoV-2 S Gene Negative; SARS-CoV-2 orf1ab Negative
== END 2020-01-28 07:19 | disposition home or self-care (01) ==
LOC: LABBT 07:18
PROVIDERS: ATTEND Orthopaedic Surgery
DX: Z01.812 Encounter for preprocedural laboratory examination (principal); Z11.59 Encounter for screening for other viral diseases; T85.848A Pain due to other internal prosthetic devices, implants and grafts, initial encounter
CPT/HCPCS: 80048; 85027; 87635; 93005; 93010; U0003

== ENCOUNTER 2020-01-31 09:54 | Day surgery (SDC) | payer OTHER ==
[2020-01-27 13:07] VITALS: BMI 34.3
[2020-01-31] MEDS ORDERED: Lidocaine 1% PF 5 ML VIAL ONE (11:36)
[2020-01-31] MEDS ORDERED: Dexamethasone 20 MG/5 ML VIAL ONE (11:36)
[2020-01-31] MEDS ORDERED: Ondansetron PF 4 MG/2 ML Vial ONE (11:36)
[2020-01-31] MEDS ORDERED: Ketorolac Tromethamine 30 MG/ML VIAL ONE (11:36)
[2020-01-31] MEDS ORDERED: PROPOFOL 200 MG/20 ML VIAL ONE (11:36)
[2020-01-31] MEDS ORDERED: Fentanyl 100 MCG/2 ML VIAL ONE ×2 (12:01)
[2020-01-31] MEDS ORDERED: Lidocaine 1% (PF) 30 ML VIAL ONE (12:20)
[2020-01-31] MEDS ORDERED: Bupivacaine PF 0.5% 30 ML VIAL ONE (12:57)
[2020-01-31] MEDS ORDERED: Morphine 4 MG/ML VIAL ONE (13:42)
[2020-01-31] MEDS ORDERED: Morphine 2 MG/ML SYRINGE ONE ×3 (13:50→14:22)
--- NOTE | 2020-01-31 14:08 | OP ---
DATE OF PROCEDURE: 01/31/2020 PREOPERATIVE DIAGNOSIS: Symptomatic retained hardware, left ankle. POSTOPERATIVE DIAGNOSIS: Symptomatic retained hardware, left ankle. PROCEDURE PERFORMED: Removal of lateral malleolar plate and screws, left ankle. ANESTHESIA: General as well as 0.5% Marcaine plain. STAFF WRITER: Ralf Zee PA-C TOURNIQUET TIME: 34 minutes at 300 mmHg. COMPLICATIONS: None. DRAINS: None. SPECIMENS: Explanted plates given to the patient. OUTCOME: Satisfactory. INDICATIONS FOR PROCEDURE: The patient is a 59-year-old lady, status post open reduction and internal fixation of comminuted left distal tibia and fibular fracture. The patient went on to develop a small wound infection overlying the lateral malleolar plate, which has since been eradicated with antibiotics. The patient now having symptoms from this retained plate. As such, we are going to proceed with hardware removal. Informed consent has been obtained. I believe all questions answered. DESCRIPTION OF PROCEDURE: The patient was brought to the operating room and a time-out performed followed by induction of general anesthesia. Next, the patient was positioned supine on the OR table and a sterile prep and drape performed of the left lower extremity. Next, the limb was exsanguinated with Esmarch bandage, tourniquet inflated to 300 mmHg. A lateral incision was made overlying the lateral malleolus. After skin was sharply incised, dissection was carried down bluntly exposing the plate. It should be noted that there was somewhat odd appearing granulation type tissue at the distal end of the plate, but no real loculated fluid or purulent material encountered. This area of granulation tissue was debrided sharply and then the hardware was removed with the screws removed first including an interfragmentary screw and then the plate removed without difficulty. At the completion of this, the wound was irrigated thoroughly with bulb syringe and then closed in a layer of 2-0 Monocryl deep followed by nylon for the skin. Xeroform gauze and soft dressing were applied to the ankle. Tourniquet was let down and then the patient was transferred to recovery room in stable condition. There were no complications. She tolerated the procedure well. Job ID: [id number]
[2020-01-31] MEDS ORDERED: HYDROcodone/Acetaminophen 5/325 mg Tablet ONE (15:14)
--- NOTE | 2020-01-31 16:08 | RAD ---
XR Ankle Lt 2 View HISTORY: Hardware removal left ankle COMPARISON: 03/08/2019 FINDINGS: There are postop changes of new hardware placement in the left tibia since comparison exam with place ment of plate with screws. There has also been removal of the plate and screws noted in the distal fibula on the previous study. Screw through the medial malleolus remains in place.
== END 2020-01-31 15:48 | disposition home or self-care (01) ==
LOC: SDC 09:54
PROVIDERS: ATTEND Orthopaedic Surgery
PROC: 0SPG04Z Removal of Internal Fixation Device from Left Ankle Joint, Open Approach (ICD-10-PCS; principal; 2020-01-31)
DX: T84.84XA Pain due to internal orthopedic prosthetic devices, implants and grafts, initial encounter (principal); I10 Essential (primary) hypertension; M81.0 Age-related osteoporosis without current pathological fracture; F17.200 Nicotine dependence, unspecified, uncomplicated; Z79.01 Long term (current) use of anticoagulants; Z79.899 Other long term (current) drug therapy; Z88.5 Allergy status to narcotic agent; Z95.810 Presence of automatic (implantable) cardiac defibrillator
CPT/HCPCS: 76000; J0690; J1100; J1885; J2001; J2270; J2405; J2704; J3010; S0020

== ENCOUNTER 2020-07-17 11:24 | Outpatient (CLI) | payer OTHER ==
--- NOTE | 2020-07-17 12:17 | MMO ---
Bilateral MAMMO Bilat Screen [facility]. CLINICAL HISTORY: Patient is 60 years old and is seen for screening. The patient has no family history of breast cancer. The patient has no personal history of cancer. VIEWS: The views performed were: bilateral craniocaudal with tomosynthesis; bilateral mediolateral oblique with tomosynthesis; and left mediolateral. FILMS COMPARED: The present examination has been compared to a prior imaging study performed at [facility] on 03/17/2018. This study has been interpreted with the assistance of computer-aided detection. MAMMOGRAM FINDINGS: There are scattered fibroglandular densities. There are no suspicious masses, suspicious calcifications, or new areas of architectural distortion. IMPRESSION: THERE IS NO MAMMOGRAPHIC EVIDENCE OF MALIGNANCY. A ROUTINE FOLLOW-UP MAMMOGRAM IN 1 YEAR IS RECOMMENDED. THE RESULTS OF THIS EXAM WERE SENT TO THE PATIENT. ACR BI-RADS Category 1 - Negative MAMMOGRAPHY NOTE: 1. A negative mammogram report should not delay a biopsy if a dominant of clinically suspicious mass is present. 2. Approximately 10% to 15% of breast cancers are not detected by mammography. 3. Adenosis and dense breasts may obscure an underlying neoplasm. Reported by: GLORIA WATTS MD Electonically Signed: [id number]
== END 2020-07-17 11:25 | disposition home or self-care (01) ==
LOC: BICMAMMO 11:24
PROVIDERS: ATTEND Registered Nurse
DX: Z12.31 Encounter for screening mammogram for malignant neoplasm of breast (principal)
CPT/HCPCS: 77063; 77067

== ENCOUNTER 2020-09-02 16:59 | Emergency (ER) | payer OTHER ==
[2020-09-02] MEDS ORDERED: Ketorolac Tromethamine 30 MG/ML VIAL ONE (17:30)
[2020-09-02] MEDS ORDERED: Diazepam 5 MG TAB ONE (17:30)
--- NOTE | 2020-09-02 18:13 | RAD ---
Left knee 4 views: HISTORY: Fall, left knee pain FINDINGS: There are postop changes and metallic hardware in the distal femur and visualized portions of the mid shaft of the tibia. No dislocation is identified. There is increased density in the left lateral tibial plateau which could represent a fracture.
--- NOTE | 2020-09-02 19:37 | CT ---
CT LEFT KNEE WITHOUT CONTRAST: 09/02/20 HISTORY: Fall, left knee pain. FINDINGS: There is a minimally depressed fracture involving the lateral tibial plateau. The visualized portions of the fibula and femur are intact. There are postop changes and metallic mary dware in the distal femur and visualized portions of the shafts of the tibia. IMPRESSION: Minimally displaced fracture of the lateral tibial plateau. POS: OFF
== END 2020-09-02 19:45 | disposition home or self-care (01) ==
LOC: ERS 16:59
DX: S82.142A Displaced bicondylar fracture of left tibia, initial encounter for closed fracture (principal); M54.5 Low back pain; Z20.822 Contact with and (suspected) exposure to COVID-19; F17.210 Nicotine dependence, cigarettes, uncomplicated; W01.0XXA Fall on same level from slipping, tripping and stumbling without subsequent striking against object, initial encounter; Y93.E1 Activity, personal bathing and showering
CPT/HCPCS: 96372; J1885

== ENCOUNTER 2021-06-26 14:47 | Outpatient (CLI) | payer OTHER | END 2021-06-26 14:48 | disposition home or self-care (01) | LOC: ULT 14:47 | PROVIDERS: ATTEND Internal Medicine Rheumatology | DX: M79.605 Pain in left leg (principal); G89.29 Other chronic pain ==

== ENCOUNTER 2023-08-29 11:55 | Emergency (ER) | payer OTHER, MEDICARE ==
[2023-08-29] MEDS ORDERED: Iopamidol-370 76% 500 ML MDV (1 ML CHARGE) ONE (12:38)
[2023-08-29 13:33] LABS: #Basophils 0.1 thou/uL (0.0-0.2); #Eosinphils 0.1 thou/uL (0.0-0.7); #Monocytes 0.4 thou/uL (0.11-0.59); #Neutrophils 5.2 thou/uL (1.40-6.50); %Basophils 0.6 % (0.0-1.0); %Eosinophils 1.7 % (0.0-10.0); %Lymphocytes 28.3 % (21.0-51.0); %Monocytes 4.8 % (0.0-10.0); %Neutrophils 64.4 % (42.0-75.0); Hematocrit 49.7 % (36.0-47.0); Hemoglobin 16.3 g/dL (12.0-16.0); Mean Corpuscular HGB CONC 32.8 g/dL (32.0-36.0); Mean Corpuscular Hemoglobin 31.8 pg (27.0-31.0); Mean Corpuscular Volume 97.1 fl (78.0-98.0); Mean Platelet Volume 11.3 fL (7.4-10.4); Platelet Count 218 10x3/uL (130-400); RBC Distribution Width 12.2 % (11.5-14.5); Red Blood Cell (RBC) Count 5.12 mill/uL (4.20-5.40); White Blood Cell (WBC) Count 8.1 10x3/uL (4.8-10.8)
[2023-08-29 13:34] LABS: Bacteria/HPF None Seen HPF (None Seen); Bilirubin Negative (Negative); Blood, Urine 3+ (Negative); CAUTI Indications for Culture Acute Hematuria; Clarity Turbid (Clear); Glucose, Urine (Dipstick) Normal (Negative); Ketone, Urine Negative (Negative); Leukocyte Negative Leu/uL (Negative); Nitrite Negative (Negative); Protein, Urine (Dipstick) 200 mg/dL (Neg-Trace); RBC/HPF Greater than 50 HPF (0-3); Squamous Epithelial 0-3 HPF (0-3); Urobilinogen Normal mg/dL (Less than 2)
[2023-08-29 13:37] LABS: Urine Culture Reflex No No
[2023-08-29 13:56] LABS: ALT (SGPT) 19 U/L (8-55); AST (SGOT) 18 U/L (5-34); Albumin 4.1 g/dL (3.4-4.8); Alkaline Phosphatase 59 U/L (40-110); Anion Gap 14 mmol/L (10-20); BUN (Urea Nitrogen) 11 mg/dL (9.8-20.1); Bilirubin, Total 0.4 mg/dL (0.2-1.2); Calc. Creatinine Clearance 0 mL/min (70-130); Calcium 9.6 mg/dL (7.8-10.44); Carbon Dioxide 23 mmol/L (23-31); Chloride 107 mmol/L (98-107); Estimated GFR 84; Globulin 3.1 g/dL (2.4-3.5); Glucose 99 mg/dL (80-115); Potassium 3.8 mmol/L (3.5-5.1); Protein, Total 7.2 g/dL (5.8-8.1); Sodium 140 mmol/L (136-145)
== END 2023-08-29 18:09 | disposition home or self-care (01) ==
LOC: ERS 11:55
DX: E27.9 Disorder of adrenal gland, unspecified (principal); R31.9 Hematuria, unspecified; J43.9 Emphysema, unspecified; F17.210 Nicotine dependence, cigarettes, uncomplicated
CPT/HCPCS: 36415; 51702; 74177; 80053; 81001; 85025; Q9967

== ENCOUNTER 2023-08-30 11:50 | Emergency (ER) | payer MEDICARE, OTHER ==
[2023-08-30 12:50] LABS: #Basophils 0.1 thou/uL (0.0-0.2); #Eosinphils 0.1 thou/uL (0.0-0.7); #Monocytes 0.3 thou/uL (0.11-0.59); #Neutrophils 4.4 thou/uL (1.40-6.50); %Basophils 0.7 % (0.0-1.0); %Eosinophils 1.5 % (0.0-10.0); %Lymphocytes 28.3 % (21.0-51.0); %Monocytes 4.5 % (0.0-10.0); %Neutrophils 64.7 % (42.0-75.0); Hematocrit 43.1 % (36.0-47.0); Hemoglobin 14.4 g/dL (12.0-16.0); Mean Corpuscular HGB CONC 33.4 g/dL (32.0-36.0); Mean Corpuscular Hemoglobin 31.9 pg (27.0-31.0); Mean Corpuscular Volume 95.6 fl (78.0-98.0); Mean Platelet Volume 11.3 fL (7.4-10.4); Platelet Count 197 10x3/uL (130-400); RBC Distribution Width 12.5 % (11.5-14.5); Red Blood Cell (RBC) Count 4.51 mill/uL (4.20-5.40); White Blood Cell (WBC) Count 6.8 10x3/uL (4.8-10.8)
[2023-08-30 13:15] LABS: ALT (SGPT) 17 U/L (8-55); AST (SGOT) 18 U/L (5-34); Albumin 3.7 g/dL (3.4-4.8); Alkaline Phosphatase 53 U/L (40-110); Anion Gap 12 mmol/L (10-20); BUN (Urea Nitrogen) 10 mg/dL (9.8-20.1); Bilirubin, Total 0.4 mg/dL (0.2-1.2); Calc. Creatinine Clearance 0 mL/min (70-130); Calcium 9.3 mg/dL (7.8-10.44); Carbon Dioxide 25 mmol/L (23-31); Chloride 105 mmol/L (98-107); Estimated GFR 78; Globulin 2.8 g/dL (2.4-3.5); Glucose 110 mg/dL (80-115); Protein, Total 6.5 g/dL (5.8-8.1); Sodium 138 mmol/L (136-145)
[2023-08-30 13:21] LABS: Bacteria/HPF None Seen HPF (None Seen); Bilirubin Negative (Negative); Blood, Urine 3+ (Negative); CAUTI Indications for Culture Acute Hematuria; Clarity Turbid (Clear); Glucose, Urine (Dipstick) Normal (Negative); Ketone, Urine Negative (Negative); Leukocyte 25 Leu/uL (Negative); Nitrite Negative (Negative); Protein, Urine (Dipstick) 100 mg/dL (Neg-Trace); RBC/HPF Greater than 50 HPF (0-3); Squamous Epithelial None Seen HPF (0-3); Urobilinogen Normal mg/dL (Less than 2); pH, Urine 6.5 (5.0-9.0)
[2023-08-30] MEDS ORDERED: HYDROcodone/Acetaminophen 5/325 mg Tablet ONE (13:28)
[2023-08-30 13:34] LABS: Urine Culture Reflex No No
== END 2023-08-30 14:12 | disposition home or self-care (01) ==
LOC: ERS 11:50
DX: R31.9 Hematuria, unspecified (principal); R33.9 Retention of urine, unspecified; F17.210 Nicotine dependence, cigarettes, uncomplicated
CPT/HCPCS: 51702; 80053; 81001; 85025; 87086; 99283